=== PATIENT | female | born 1970 | race Caucasian/White ===

== ENCOUNTER 2024-04-29 11:00 | Outpatient (RCR) | payer MEDICARE, SELFPAY | END 2024-05-06 09:50 | disposition home or self-care (01) | LOC: PT 11:00 | PROVIDERS: Visit Provider Neurological Surgery | DX: M50.30 Other cervical disc degeneration, unspecified cervical region (principal) | CPT/HCPCS: 97010; 97014; 97035; 97110; 97163; 97530; G0283 ==

== ENCOUNTER 2024-09-01 09:33 | Outpatient (CLI) | payer MEDICARE, SELFPAY ==
--- NOTE | 2024-09-01 09:39 | XR_ITS ---
PROCEDURE INFORMATION: Exam: XR Left Knee Exam date and time: 09/01/2024 9:42 AM Age: 53 years old Clinical indication: Pain; Knee; Left; Additional info: Bilateral knee pain TECHNIQUE: Imaging protocol: Radiologic exam of the left knee. Views: 3 views. AP [place] Lateral COMPARISON: CR XR KNEE LT 3V 09/01/2024 9:42 AM FINDINGS: Bones/joints: Mild generalized bony degenerative changes. Mild irregularity of the patellar articular surface. Slight narrowing of the medial compartment. No joint effusion is demonstrated. Bony structures appear otherwise unremarkable. No visualized evidence for acute bony fracture or dislocation. Soft tissues: The soft tissue appear unremarkable. Notes: If there is further concern, recommend follow-up radiographs or MRI for complete assessment. IMPRESSION: Mild degenerative changes.
--- NOTE | 2024-09-01 09:39 | XR_ITS ---
PROCEDURE INFORMATION: Exam: XR Right Knee Exam date and time: 09/01/2024 9:42 AM Age: 53 years old Clinical indication: Pain; Knee; Right; Additional info: Bilateral knee pain TECHNIQUE: Imaging protocol: Radiologic exam of the right knee. Views: 3 views. AP [place] Lateral COMPARISON: No relevant prior studies available. FINDINGS: Bones/joints: Narrowing of the knee medial compartment is demonstrated. Mild to moderate generalized bony degenerative changes. Minimal joint effusion is demonstrated. No visualized evidence for acute bony fracture or dislocation. Bony structures appear otherwise unremarkable. Soft tissues: The soft tissue appear unremarkable. Notes: If there is further concern, recommend follow-up radiographs or MRI for complete assessment. IMPRESSION: 1. Chronic bony degenerative changes. 2. Minimal right knee joint effusion.
== END 2024-09-01 23:59 | disposition home or self-care (01) ==
LOC: RAD 09:35
PROVIDERS: PCP Nurse Practitioner Family; Visit Provider Physician Assistant
DX: M25.561 Pain in right knee (principal); M25.562 Pain in left knee
CPT/HCPCS: 73562

== ENCOUNTER 2024-09-26 09:02 | Outpatient (CLI) | payer MEDICARE, SELFPAY ==
--- NOTE | 2024-09-26 09:11 | CA_ITS ---
APPROVED REPORT EXAM: Comprehensive 2D, Doppler, and color-flow Echocardiogram Application Development Project Manager: Neeru Garrett RVT Ht: 5 ft 4 in Wt: 289lbs BSA: 2.29 BP: 153/106 mmHg Indications: HTN,FATIGUE,FAMILY HX OF AAA AND CAD 2D Dimensions LA Volume 36.80 mL LA Volume Index 16.07 mL/m2 (M/F) 16-34 M-Mode Dimensions RVDd 3.87 cm (0.9-2.6) LA Diam 4.13 cm (1.9-4.0) LVDd 5.11 cm (3.5-5.7) LVDs 3.19 cm (3.5-5.7) IVSd 1.02 cm (0.6-1.1) PWd 0.77 cm (0.6-1.1) EF (Teich) 67.40% FS 37.60% EDV (Teich) 124.40 mL ESV (Teich) 40.60 mL LV Diastology E Decel Time 237 (160-240 msec) E/A Ratio 1.4 Aortic Valve MAHAD Index 1.67 cm2/m2 AoV Peak Genaro. 154.0 (50-130 cm/s) AO Peak GR. 9.50 mmHg AO Mean GR. 4.70 (<5 mmHg) AO VTI 26.9 (18-25 cm) MAHAD (VTI) 3.91 (2.5-4.5 cm2) Mitral Valve MV E Max Genaro. 93.0 (40-130 cm/s) MV A Velocity 66.0 (40-130 cm/s) E/A Ratio 1.41 MV PHT 69.0 ms Pulmonary Valve PV Peak Velocity 100.0 (50-150 cm/s) Tricuspid Valve TR P. Velocity 204.00 cm/s RAP Estimate 10.00 mmHg RVSP 26.70 mmHg Left Ventricle The left ventricle is normal size. The left ventricular systolic function is low-normal. There is increased LV wall thickness. The septum is asynchronous. The left ventricular diastolic function is normal. LVEF is 50%. Right Ventricle The right ventricle is normal size. The right ventricular systolic function is normal. Atria The left atrium size is normal. The right atrium size is normal. There is no Doppler evidence of interatrial shunt. Aortic Valve The aortic valve is mildly thickened. There is no aortic valvular stenosis. No aortic regurgitation is present. Mitral Valve The mitral valve is normal in structure. No evidence of mitral valve stenosis. Trace mitral regurgitation. Tricuspid Valve Tricuspid valve is grossly normal in structure and function. Trace tricuspid regurgitation. There is insufficient TR jet to estimate RVSP. Pulmonic Valve The pulmonary valve is normal in structure. Trace pulmonic regurgitation. Great Vessels The aortic root is normal in size. The proximal segment of the ascending aorta is normal in size. IVC is normal in size and collapses >50% with inspiration. Pericardium There is no pericardial effusion. Other Information Study Quality: Fair Conclusion Low-normal LV systolic function (LVEF 50%). Asynchronous septum. No significant valvular stenosis or regurgitation. No evidence of aneurysms in the aortic root or the proximal segment of the ascending aorta. Electronically signed by : Yenni Banda MD 10/12/2024 17:17:08
--- NOTE | 2024-09-26 09:14 | CT_ITS ---
FINAL REPORT TECHNIQUE: Pre-and postcontrast images of the abdomen were performed by computed tomography. Extensive 3-D reconstruction images were performed. A CTA was performed. This study was performed with techniques to keep radiation doses as low as reasonably achievable (ALARA). Individualized dose reduction techniques using automated exposure control or adjustment of mA and/or kV according to the patient's size were employed. CLINICAL HISTORY: family history of aneursym COMPARISON: None FINDINGS: ABDOMEN: The lung bases are clear. Precontrast images demonstrate a nonobstructing right renal stone. No adrenal masses are identified. The liver, spleen and pancreas are unremarkable. The gallbladder is unremarkable in appearance. The appendix is normal in appearance. The uterus and ovaries are unremarkable. Visualized bowel is unremarkable. CTA: The abdominal aorta is proper caliber. No evidence of aneurysm is identified in either the abdominal aorta or the visceral branches. The SMA, celiac axis, and [place] are patent. There is no significant stenosis or calcification. The renal arteries are patent bilaterally. IMPRESSION: No intra-abdominal vascular abnormality is identified. Specifically, no evidence of abdominal aortic or visceral branch aneurysm is seen. Nonobstructing right renal stone Reviewed, Interpreted and Dictated by Danica Balderas MD Transcribed by Fiona Kearns Authenticated and . [facility]
[2024-09-26 09:36] LABS: Blood Urea Nitrogen 15 mg/dl (7-17); Estimated Glomerular Filt Rate 105 ml/min (>60); GFR (African American) 127 ML/MIN (>60)
[2024-09-26] MEDS: SODIUM CHLORIDE 0.9% 10ML SYR (RAD ONLY) 10 ML IV (10:00)
[2024-09-26] MEDS: 0.9 % SODIUM CHLORIDE 50 ML VIAL IV (10:00)
[2024-09-26] MEDS: IOPAMIDOL-370 (76%);100ML BOTTLE 100 ML IV (10:01)
== END 2024-09-26 23:59 | disposition home or self-care (01) ==
LOC: LAB 09:04
PROVIDERS: PCP Nurse Practitioner Family; Visit Provider Internal Medicine
DX: R53.83 Other fatigue (principal); I10 Essential (primary) hypertension; Z79.899 Other long term (current) drug therapy; Z86.79 Personal history of other diseases of the circulatory system; Z87.39 Personal history of other diseases of the musculoskeletal system and connective tissue; Z82.49 Family history of ischemic heart disease and other diseases of the circulatory system
CPT/HCPCS: 36415; 74175; 82565; 84520; 93306; Q9967

== ENCOUNTER 2024-12-02 11:00 | Outpatient (RCR) | payer MEDICARE, SELFPAY | END 2024-12-02 23:59 | disposition home or self-care (01) | LOC: PT 11:00 | PROVIDERS: Visit Provider Nurse Practitioner Family | DX: M54.50 Low back pain, unspecified (principal) | CPT/HCPCS: 97014; 97110; 97163; G0283 ==

== ENCOUNTER 2024-12-17 11:00 | Outpatient (RCR) | payer MEDICARE, SELFPAY | END 2025-01-05 15:58 | disposition home or self-care (01) | LOC: PT 11:00 | PROVIDERS: Visit Provider Nurse Practitioner Family | DX: M54.50 Low back pain, unspecified (principal) | CPT/HCPCS: 97014; 97110; G0283 ==

== ENCOUNTER 2025-03-04 12:10 | Outpatient (CLI) | payer MEDICARE, SELFPAY ==
[2025-03-04 12:18] LABS: MANUAL DIFFERENTIAL MANUAL DIFFERENTIAL (MANUAL DIFF)
[2025-03-04 12:48] LABS: Basophils # 0.1 K/mm3 (0-0.2); Basophils % 0.5 % (0.1-2.0); Eosinophils # 0.3 Kmm3 (0.0-0.4); Eosinophils % 2.8 % (0.1-12.0); Hematocrit 40.2 % (37.0-47.0); Hemoglobin 12.6 g/dL (12.2-16.2); Lymphocytes # 2.6 K/mm3 (0.7-4.5); Lymphocytes % 26.6 % (10-50); Mean Corpuscular HGB Conc 31.3 g/dL (31.8-35.4); Mean Corpuscular Hemoglobin 25.4 pg (27.0-31.2); Mean Platelet Volume 9.7 fl (7.4-10.4); Monocytes # 0.6 K/mm3 (0.1-1.0); Monocytes % 6.3 % (1.7-9.3); Neutrophils # 6.1 K/mm3 (1.8-7.8); Neutrophils % 63.5 % (37.0-80.0); Platelet Count 355 K/mm3 (142-424); Red Blood Count 4.96 M/mm3 (4.20-5.40); Red Cell Distribution Width 15.8 % (11.5-17.5); White Blood Count 9.7 K/mm3 (4.8-10.8)
[2025-03-04 13:26] LABS: Eosinophils % 3 % (0-3); Lymphocytes % 26 % (10-50); Monocytes % 3 % (2-9); Neutrophils % 68 % (42-76); Total Cells Counted 100
[2025-03-04 13:27] LABS: Alanine Aminotransferase 23 U/L (12-78); Alkaline Phosphatase 92 U/L (38-126); Aspartate Amino Transferase 32 U/L (14-36); Bilirubin,Total 0.5 mg/dl (0.2-1.3); Calcium 9.6 mg/dl (8.4-10.2); Chloride 100 mmol/L (98-107); Glucose 103 mg/dl (74-100); Potassium 4.5 mmoL/L (3.5-5.1); RBC Morphology Normal; Sodium 138 mmol/L (136-145)
[2025-03-04 13:28] LABS: Platelet Estimate Normal
[2025-03-04 13:29] LABS: Albumin Level 4.5 g/dl (3.5-5.0); Albumin/Globulin Ratio 1.5 (1.1-1.8); Anion Gap 12.5 mEq/L (5-15); Blood Urea Nitrogen 13 mg/dl (7-17); Carbon Dioxide 30 mmol/L (22.0-30.0); Estimated Glomerular Filt Rate 105 ml/min (>60); GFR (African American) 127 ML/MIN (>60); Total Protein,Serum 7.5 g/dl (6.3-8.2)
[2025-03-04 14:16] LABS: Vitamin B12 871 pg/mL (239-931)
[2025-03-04 14:30] LABS: Folate > 20.00 ng/mL
== END 2025-03-04 23:59 | disposition home or self-care (01) ==
LOC: LAB 12:10
PROVIDERS: PCP Nurse Practitioner Family; Visit Provider Specialist
DX: R20.0 Anesthesia of skin (principal); R20.2 Paresthesia of skin; R53.83 Other fatigue
CPT/HCPCS: 36415; 80053; 82607; 82746; 85007; 85014; 85018; 85048; 85049

== ENCOUNTER → 2025-04-13 07:15 | Outpatient (CLI) | payer MEDICARE, SELFPAY ==
--- OUTSIDE RECORDS SUMMARY | 2025-04-13 07:18 | XMS_ITS | Clinical Summary ---
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 M47.814 (ICD-10-CM ) 02/26 Active 02/26 Lilian Joanna Spondylosis without myelopathy or radiculopathy, thoracic region THORACOLUMB AR RADICULOPAT HY RADICULOPAT HY 801860768 (SNOMED CT) 12/26 Active 12/26 Madeleine Olmos MA Lumbar radiculopathy LUMBAR RADICULOPAT HY 403890563 (SNOMED CT) 12/24 Active 12/24 Shannon Sullivan MA Lumbar radiculopathy ARTHRODESIS STATUS 921476575 (SNOMED CT) 03/19 Active 03/19 Joyce Jefferson 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 H/O: arthrodesis CERVICAL MYELOPATHY 348422829 (SNOMED CT) 05/18 Active 05/18 Charley Lerma Cervical myelopathy PRE-OP EXAM 634456975 (SNOMED CT) 05/18 Active 05/18 Siria Miles Special examination - general STENOSIS, CERVICAL SPINAL 66646644 (SNOMED CT) 05/18 Active 05/18 Siria Abbatiello Spinal stenosis in cervical region SPINAL CORD COMPRESSION 54898252 (SNOMED CT) 05/18 Inactive 05/18 Siria Abbatiello Spinal cord compression PAIN IN JOINT, SHOULDER 14592577 (SNOMED CT) 04/20 Active 04/20 Sil Foley MA Pain of shoulder region DEGENERATIV E DISC DISEASE, CERVICAL SPINE 70102082 (SNOMED CT) 04/06 Active 04/06 Siria Abbatiello Degeneration of cervical intervertebral disc CERVICAL RADICULOPAT HY 16793681 (SNOMED CT) 2022 Active 04/06 Yesenia Rebolledo 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 Cervical radiculopathy PAIN IN NECK M54.2 (ICD-10-CM ) 04/06 Active 04/06 Siria Abbatiello Cervicalgia HYPERTENSIO N 90791711 (SNOMED CT) 04/03 Active 04/03 Siria Abbatiello Hypertensive disorder DEGENERATIV E DISC DISEASE, LUMBAR SPINE 89408182 (SNOMED CT) 12/30 Active 12/30 Yvonne Jj MA Degeneration of lumbar intervertebral disc SACROILIAC JOINT DYSFUNCTION 986649727 (SNOMED CT) Active Yvonne Parviz MA Sacroiliac disorder SACROILIITI S 81452892 (SNOMED CT) Active Yesenia Rebolledo 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 Inflammation of sacroiliac joint OVERWEIGHT 195228893 (SNOMED CT) 12/08 Active 12/08 Callie Gomez MA Overweight ARTHRODESIS STATUS 878724764 (SNOMED CT) 06/25 Active 06/25 Dia Briceno H/O: arthrodesis HERNIATED LUMBAR DISC 066220349 (SNOMED CT) 04/23 Active 05/31 Sil Foley MA Prolapsed lumbar intervertebral disc LUMBAR SPONDYLOLIS THESIS 045066008 (SNOMED CT) 04/23 Active 05/31 Sil Foley MA Spondylolisthes is LUMBAR STENOSIS, L1-L5, WITH NEUROGENIC CLAUDICATIO N M48.062 (ICD-10-CM ) 2019 Active 04/23 Yesenia Rebolledo 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 Spinal stenosis, lumbar region with neurogenic claudication LUMBAR DEGENERATIV E DISC, L1-L5 M51.36 (ICD-10-CM ) 2019 Active 04/23 Yesenia Rebolledo 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 Other intervertebral disc degeneration, lumbar region ARTHROPATHY OF LUMBAR FACET JOINT 728130306 (SNOMED CT) 04/23 Active 04/23 Yesenia Rebolledo 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 Arthropathy of lumbar facet joint SACROILIITI S, LEFT 50626732 (SNOMED CT) march 2019 Active 10/17 Yesenia Rebolledo 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 Inflammation of sacroiliac joint LUMBAR SPINAL STENOSIS 95095222 (SNOMED CT) Active 10/11 Yesenia Rebolledo 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 Spinal stenosis of lumbar region Medications Medication Instructions Start Date Stop Date Generic Name ND Provider TIZANIDINE HCL 4 MG TABS Take 1/2-1 tablet by mouth three times a day for pain for muscle spasm discontinue other muscle relaxers 12/24 tizanidine 54761305069 Gena MALONE PREDNISONE 10 MG TABS Take as directed :STOP All NSAIDS: In the mornin tabs QD for 2 days, 3 tabs QD for 2 days, 2 tabs QD x 2 days, 1 tab QD x 2 days, 1/2 tab QD x 2 days 12/24 prednisone 66925429224 Gena MALONE TRAMADOL HCL 50 MG TABS 1 tablet by mouth every six hours for pain 12/24 tramadol 38472879971 Gena MALONE MAGNESIUM CITRATE 1.745 GM/30ML SOLN Take 296 ml by mouth single dose 12/24 magnesium citrate 27723599204 Gena MALONE HYDROCHLOROTHIAZIDE 25 MG TABS Take 25 mg by mouth once a day 12/24 hydrochlorothiazid e 08308869526 Gena MALONE ZOLOFT 50 MG TABS Non-Antunez 10/11 sertraline 96594113347 Gena MALONE PREDNISONE 10 MG TABS Take as directed :STOP All NSAIDS: In the mornin tabs QD for 2 days, 3 tabs QD for 2 days, 2 tabs QD x 2 days, 1 tab QD x 2 days, 1/2 tab QD x 2 days 11/18 prednisone 82966823360 Gena MALONE SERA ROOT, BULK, by Does not apply route. 12/24 SERA ROOT, BULK, Gena MALONE AVIANE 0.1-20 MG-MCG TABS -Antunez 10/11 levonorgestrel-eth inyl estrad 70794549237 Gena MALONE Accuretic (quinapril-hydrochlo rothiazide) 20-25 mg tablet -Antunez 10/11 quinapril-hydrochl orothiazide 62385141768 Gena MALONE ACTIVITE (B [id number] ACID) 1 MG TABS -Antunez 10/11 B [id number] ACID Gena MALONE OMEPRAZOLE 20 MG CPDR Take 20 mg by mouth once a day 12/24 omeprazole 98594238269 Gena MALONE K-99 CAPSULE -Antunez 10/11 K-99 CAPSULE Gena MALONE VITAMIN D3 1.25 MG (33932 UT) CAPS Take 1 by mouth once a week 05/21 cholecalciferol (vitamin d3) 11286006167 Gena MALONE LEVONORGESTREL-ETHIN YL ESTRAD 0.1-20 MG-MCG TABS Take 1 tablet by mouth once a day 12/24 levonorgestrel-eth inyl estrad 38985099513 Gena MALONE POTASSIUM CHLORIDE PO Take by mouth 12/24 POTASSIUM CHLORIDE PO Gena MALONE GABAPENTIN 300 MG CAPS -Antunez 10/11 gabapentin 25779678159 Gena MALONE FUROSEMIDE 20 MG TABS 12/24 furosemide 14408285455 Gena MALONE HYDROCHLOROTHIAZIDE 25 MG TABS hydrochlorothiaz id e 15551297962 Gena MALONE CARVEDILOL 3.125 MG TABS carvedilol 89195223535 Gena MALONE DICLOFENAC SODIUM 75 MG TBEC diclofenac sodium 31056713245 Zuri MALONE METFORMIN HCL ER 500 MG [id number] metformin (glucophage xr) 01620405552 Gena MALONE SERTRALINE HCL 50 MG TABS sertraline 71479271035 Gena MALONE FLUTICASONE PROPIONATE 50 MCG/ACT SUSP fluticasone propionate 99693176618 Gena MALONE SERTRALINE HCL 25 MG TABS sertraline 35275794067 Gena MALONE OMEPRAZOLE 20 MG CPDR omeprazole 69815806587 Gena MALONE CETIRIZINE HCL 10 MG TABS TAKE ONE (1) TABLET EVERY DAY BY ORAL ROUTE. cetirizine 24524442609 Gena MALONE GABAPENTIN 400 MG CAPS gabapentin 03813969511 Gena MALONE GABAPENTIN 600 MG TABS gabapentin 82730010366 Gena MALONE PREDNISONE 10 MG TABS Take as directed :STOP All NSAIDS: In the mornin tabs QD for 2 days, 3 tabs QD for 2 days, 2 tabs QD x 2 days, 1 tab QD x 2 days, 1/2 tab QD x 2 days 11/18 prednisone 74525717386 Gena MALONE CELECOXIB 200 MG CAPS Take 1 capsule by mouth once a day as directed 03/13 celecoxib 69945163125 Joyce Jefferson NP METHOCARBAMOL 750 MG TABS Take 1 tablet by mouth every six hours as needed TAKE 1 TABLET BY MOUTH EVERY 6 HOURS NEEDED FOR MUSCLE SPASMS 12/30 methocarbamol 83695623435 Joyce Jefferson NP PERCOCET 5-325 MG TABS Take 1 tablet by mouth every six hours as needed for pain 03/19 oxycodone-acetamin ophen 36035839621 Joyce Jefferson 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 PERCOCET 5-325 MG TABS Take 1 tablet by mouth every six hours as needed for pain 03/19 oxycodone-acetamin ophen 68016756799 Mauricio Mattson MD DICLOFENAC SODIUM 75 MG TBEC Take 1 tablet by mouth twice a day Take medication with food 12/30 diclofenac sodium 64190492801 Yesenia Rebolledo 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 MAGNEBIND 400 TABLET -Antunez 10/11 MAGNEBIND 400 TABLET Siria Miles KP OMEPRAZOLE MAGNESIUM 20.6 (20 Base) MG CPDR -Antunez 10/11 omeprazole magnesium 60262554187 Siria Miles GABAPENTIN 300 MG CAPS -Antunez 10/11 gabapentin 16020590398 Siria Miles ROBAXIN-750 750 MG ORAL TABLET 1 tablet by mouth four times a day as needed 12/08 ROBAXIN-750 750 MG ORAL TABLET Siria Miles FUROSEMIDE 20 MG TABS 12/24 furosemide 54405248009 Siria Miles CELEBREX 200 MG CAPS -Antunez 10/11 celecoxib 01529834277 Sil Foley MA CELECOXIB 200 MG CAPS Take 1 capsule by mouth once a day 02/05 celecoxib 52072401269 Sil Foley MA CELEBREX 200 MG CAPS Take 1 capsule once a day 12/08 celecoxib 95896756307 Sil Foley MA CELECOXIB 200 MG CAPS Take 1 capsule by mouth once a day as directed 03/13 celecoxib 86603455365 Yesenia Rebolledo 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 MAGNESIUM CITRATE 1.745 GM/30ML SOLN Take 296 ml by mouth single dose 12/24 magnesium citrate 68596485723 Luisa Dubose GABAPENTIN 300 MG CAPS -Antunez 10/11 gabapentin 72113997858 Siria Miles K-99 CAPSULE -Antunez 10/11 K-99 CAPSULE Siria Miles ZOLOFT 50 MG TABS -Antunez 10/11 sertraline 27776801993 Siria Miles POTASSIUM CHLORIDE PO Take by mouth 12/24 POTASSIUM CHLORIDE PO Luisa Dubose ACTIVITE 1 MG TABS Non-Antunez 10/11 B EVJETKC-I-HYTXT ACID Siria Miles CELEBREX 200 MG CAPS Take 1 capsule once a day 12/08 celecoxib 26606927395 Yesenia Rebolledo NP LEVONORGESTREL-ETHIN YL ESTRAD 0.1-20 MG-MCG TABS Take 1 tablet by mouth once a day 12/24 levonorgestrel-eth inyl estrad 18140599627 Luisa Dubose Accuretic 20-25 mg tablet -Antunez 10/11 quinapril-hydrochl orothiazide 65431757421 Siria Miles GABAPENTIN 300 MG CAPS -Antunez 10/11 gabapentin 20039929128 [facility] 20 MG CPDR Take 20 mg by mouth once a day 12/24 omeprazole 63744291794 Luisa Dubose HYDROCHLOROTHIAZIDE 25 MG TABS Take 25 mg by mouth once a day 12/24 hydrochlorothiazid e 98456769885 Luisa Dubose CELEBREX 200 MG CAPS -Antunez 10/11 celecoxib 31723552685 [facility] 200 MG CAPS Take 1 capsule by mouth once a day 02/05 celecoxib 91225948578 Yesenia Rebolledo NP ROBAXIN-750 750 MG ORAL TABLET 1 tablet by mouth four times a day as needed 12/08 ROBAXIN-750 750 MG ORAL TABLET Yesenia Rebolledo NP VITAMIN D3 1.25 MG (71027 UT) CAPS Take 1 by mouth once a week 05/21 cholecalciferol (vitamin d3) 04966664843 Sil Foley MA AVIANE 0.1-20 MG-MCG TABS -Antunez 10/11 levonorgestrel-eth inyl estrad 71424789387 Siria Claudiatavo OMEPRAZOLE MAGNESIUM 20.6 (20 Base) MG CPDR Non-[place] 10/11 omeprazole magnesium 13982183561 Siria Miles DICLOFENAC SODIUM 75 MG TBEC Take 1 tablet by mouth twice a day Take medication with food 12/30 diclofenac sodium 37438107661 Yesenia Rebolledo NP DICLOFENAC SODIUM 75 MG TBEC Take 1 tablet by mouth twice a day Take medication with food 12/30 diclofenac sodium 98610261743 Yesenia Rebolledo NP METHOCARBAMOL 750 MG TABS Take 1 tablet by mouth every six hours as needed TAKE 1 TABLET BY MOUTH EVERY 6 HOURS NEEDED FOR MUSCLE SPASMS 12/30 methocarbamol 31467802814 Yesenia Rebolledo NP CELECOXIB 200 MG CAPS Take 1 capsule by mouth once daily 02/05 CELECOXIB 61784555921 Yesenia Rebolledo NP CELEBREX 200 MG CAPS Take 1 capsule daily 12/08 CELECOXIB 12508055875 Yesenia Rebolledo NP ROBAXIN-750 750 MG ORAL TABLET 1 tab po qid prn 12/08 METHOCARBAMOL 62482546183 Yesenia Rebolledo NP VITAMIN D3 1.25 MG (10427 UT) CAPS Take 1 po weekly 05/21 CHOLECALCIFEROL 07396219401 Mauricio Mattson MD POTASSIUM CHLORIDE PO Take by mouth. 04/03 POTASSIUM CHLORIDE PO Luisa Dubose OMEPRAZOLE 20 MG CPDR Take 20 mg by mouth daily. 04/03 omeprazole (PRILOSEC) 20 mg capsule 74093211951 Luisa Dubose MAGNESIUM CITRATE 1.745 GM/30ML SOLN Take 296 mL by mouth once. 04/03 magnesium citrate Solution 20808475278 Luisa Dubose LEVONORGESTREL-ETHIN YL ESTRAD 0.1-20 MG-MCG TABS Take 1 Tab by mouth daily. 04/03 levonorgestrel-eth inyl estradiol (AVIANE) 0.1-20 mg-mcg Tabl 37783732791 Luisa R Sedrick HYDROCHLOROTHIAZIDE 25 MG TABS Take 25 mg by mouth daily. 04/03 hydroCHLOROthiazid e (HYDRODIURIL) 25 mg tablet 51649128328 Luisa Dubose SERA ROOT, BULK, by Does not apply route. 12/24 SERA ROOT, BULK, Luisa Dubose K-99 CAPS Antunez 10/11 POTASSIUM GLUCONATE CAPS 94157422368 Randi Bains AVIANE 0.1-20 MG-MCG TABS Antunez 10/11 LEVONORGESTREL-ETH INYL ESTRAD 01746211435 Randi Bains MAGNEBIND 400 TABLET Antunez 10/11 MAGNESIUM-CALCIUM- FOLIC ACID TABS 63632917001 Randi Bains ACCURETIC 20-25 MG ORAL TABLET Antunez 10/11 QUINAPRIL-HYDROCHL OROTHIAZIDE 52566679950 Randi Bains ZOLOFT 50 MG TABS Antunez 10/11 SERTRALINE HCL 19033978467 Randi Bains EQ OMEPRAZOLE MAGNESIUM 20 MG CPDR Antunez 10/11 OMEPRAZOLE MAGNESIUM 90951586826 Randi Bains ACTIVITE 1 MG TABS Antunez 10/11 B [id number]-Z-TBCYU ACID 93261752142 Randi Bains GABAPENTIN 300 MG CAPS Antunez 10/11 GABAPENTIN 46747392997 Randi Bains CELEBREX 200 MG CAPS Antunez 10/11 CELECOXIB 07222436070 Randi Bains GABAPENTIN 300 MG CAPS -Antunez 10/11 GABAPENTIN 87996833182 Randi Bains CELEBREX 200 MG CAPS -Antunez 10/11 CELECOXIB 27644804590 Randi Bains Medications Administered No information available. Allergies, Adverse Reactions, Alerts Allergy Name Reaction Description Start Date Severity Statu s Provider METOPROLOL Critical Merly Oleary RN SULFA Critical Merly Oleary RN LISINOPRIL Critical Yesenia deutsch 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 Results Date Name Value Unit Range Flag Description Lab Report: DIFFERENTIAL ABS BASOS 0.1 10*3/UL {Cells}/ uL 0.0-0.2 N Basophils [#/volume] in Blood ABS EOS 0.3 10*3/UL {Cells}/ uL 0.0-0.5 N Eosinophils [#/volume] in Blood ABS MONOS 0.5 10*3/UL {Cells}/ uL 0.2-0.9 N Monocytes [#/volume] in Blood ABSLYMPHCT 2.3 {Cells}/ uL 0.8-3.9 N Lymphocytes [#/volume] in Blood ABS PMNS 7.0 10*3/UL {Cells}/ uL 1.5-7.8 N Neutrophils [#/volume] in Blood BASOPHILS 0.5 BASOPHILS EOSINOPHILS 2.6 EOSINOPHI LS MONOCYTES 5.0 MONOCYTES LYMPHS % 22.7 % Lymphocytes/ 100 leukocytes in Blood by Automated count NEUTROP BF 68.9 % Neutrophil s/100 leukocytes in Body fluid Lab Report: Staph Aureus Scr een PCR, Nares MRSA MCA PCR NEGATIVE NEGATIVE N Staphy lococcus aureus methicillin resistance SCCmec [Presence] in Nose by MELVINA with probe detection Lab Report: URINALYSIS W/ RE FLEX TO MICROSCOPIC EPITH CELL U 3 /[HPF] 0-5 epitheli al cells, squamous, urine WBC UR 1 /[HPF] 0-5 leukocytes, n umber seen, urine specimen, by microscopy Lab Report: CBC (COMPLETE BL OOD COUNT) MPV 10.1 fL 9.0-13.0 Platelet gracie n volume [Entitic volume] in Blood by [place] PLATELET CNT 315 10*3/uL 140-400 platelet count RDW 15.8 % 11.0-15.0 H Erythrocyte distribution width [Ratio] by Automated count MCHC RBC 30.3 g/dL 30.0-36.0 mean corpu scular hemoglobin concentration, RBC MCH 25.0 pg 27.0-33.0 L MCH [Entiti c mass] by Automated count MCV 82.4 fL 80.0-100.0 MCV [Entit ic volume] by Automated count HCT 42.6 % 35.0-46.0 Hematocrit [Volume Fraction] of Blood by Automated count HGB 12.9 g/dL 11.7-15.5 Hemoglobin [Mass/volume] in Blood RBC 5.17 10*6/mm3 3.80-5.10 H Erythrocyt es [#/volume] in Blood by Automated count WBC 8.30 10*3/mm3 4.00-12.00 Leukocyte s [#/volume] in Blood by Automated count Lab Report: TYPE AND SCREEN RH TYPE Negative Rh antigen ABO BLD GRP A ABO blood group Lab Report: APTT PTT PATIENT 29.8 s 23.1-37.6 PTT pat ient Lab Report: PT (PRO TIME INC LUDES INR) INR 0.9 NA 0.9-1.1 INR in Platel et poor plasma by Coagulation assay PT PATIENT 11.4 s 10.5-14.1 Prothrom bin time (PT) Lab Report: ANTIBODY SCREEN ANTIBODY SCR Negative Negative antibo dy screen, serum Lab Report: HGB, A1C (GLYCOH EMOGLOBIN) HGBA1C 6.0 % 4.0-5.6 H Hemoglobin A1c/Hemoglobin, total in Blood - % Lab Report: URINALYSIS W/ RE FLEX TO MICROSCOPIC WBC ESTERASE Negative Negative leukoc yte (WBC) esterase, urine NITRITE UA Negative Negative Nitrite Urine UROBILINOGEN <2.0 <2.0 Urobilin ogen [Presence] in Urine by Test strip PROTEIN, URN Negative Negative protei n, urine, semiquantitative (dipstick) PH U QN 6.5 NA 5.0-8.0 ph, urine, quantitative BLOOD UR Negative Negative BLOOD, URI NE (hematuria) SPEC GR URIN 1.016 NA 1.005-1.035 Spe cific gravity of Urine by Test strip KETONES UR Negative Negative KETONES, URINE BILIRUBIN UR Negative Negative Biliru bin.total [Presence] in Urine by Test strip GLUCOSE, URN Negative Negative Glucos e [Mass/volume] in Urine by Test strip CLARITY UR Clear Clear clarity, u rine, point UA COLOR Yellow Yellow,Straw ,Colorless Color of Urine Plan of Care Type Date Detail Appointment 03:00 PM Mauricio basilio MD, [address] [place] [address], [phone], Appointment 02:45 PM Super User, Appointment 02:30 PM Jamee Mejia PA-C, Appointment 02:15 PM Super User, Referral Orthopedic Refer ral Pending order 25 OH Vitamin D- 25 HYDROXY INCLUDES FRACTIONS IF PERFORMED Pending order EKG Pending order MRI Thoracic wit hout Contrast Pending order MRI Thoracic wit hout Contrast Pending order CBC Diff Pending order PTT Pending order INR Pending order PT Pending order TLSO Brace Pending order Metabolic Panel, Basic Pending order X-Ray Cervical A P Lateral/Flexion & Extension Pending order X-Ray Lumbar AP Lateral & Flexion/Extension Pending order X-Ray Lumbar AP Lateral Pending Order exclud ed from report: Pending order X-Ray Lumbar AP Lateral Pending order MRI Lumbar witho ut Contrast Pending order MRI Lumbar witho ut Contrast Pending order X-Ray Cervical A P Lateral/Flexion & Extension Pending order X-Ray Cervical A P Lateral/Flexion & Extension Pending order X-Ray Cervical A P Lateral/Flexion & Extension Pending order X-ray Cervical A P and Lateral Pending order X-Ray Cervical F lexion/Extension Pending order X-Ray Cervical A P Lateral Pending order X-Ray Cervical A P Lateral Pending order 25 OH Vitamin D- 25 HYDROXY INCLUDES FRACTIONS IF PERFORMED Pending order EKG Pending order CBC Diff Pending order PTT Pending order INR Pending order PT Pending order Metabolic Panel, Basic Pending order X-Ray Cervical A P Lateral Pending order X-Ray Cervical A P Lateral Pending order X-Ray Cervical A P Lateral Pending Order exclud ed from report: Pending order 25 OH Vitamin D- 25 HYDROXY INCLUDES FRACTIONS IF PERFORMED Pending order EKG Pending order CBC Diff Pending order PTT Pending order INR Pending order PT Pending order [place] J Collar Pending order Metabolic Panel, Basic Pending order X-Ray Lumbar AP Lateral & Flexion/Extension Pending order MRI Cervical wit hout Contrast Pending order MRI Cervical wit hout Contrast Pending order X-Ray Cervical F lexion and Extension Pending order X-Ray Lumbar AP Lateral & Flexion/Extension Pending order X-Ray Lumbar AP Lateral & Flexion/Extension Pending order X-Ray Lumbar AP Lateral & Flexion/Extension Pending order X-Ray Lumbar AP Lateral Pending order 25 OH Vitamin D- 25 HYDROXY INCLUDES FRACTIONS IF PERFORMED Pending order LISA x 1 therapeu tic injection & follow up with ordering MD Pending order X-Ray Lumbar AP Lateral & Flexion/Extension Pending order MRI Lumbar witho ut Contrast Pending order MRI Lumbar witho ut Contrast Pending order Si Joint Injecti on, therapeutic injection & follow up with ordering MD Pending order SI Joint Injecti on, therapeutic injection ( Protocol # 4 ) Pending order X-Ray Lumbar AP Lateral Pending order Radiologic exami nation, spine, lumbosacral; minimum of 4 views Pending order X-Ray Lumbar AP Lateral & Flexion/Extension Pending order X-Ray Scoliosis Standing Pending order X-Ray Lumbar AP Lateral Pending order 25 OH Vitamin D- 25 HYDROXY INCLUDES FRACTIONS IF PERFORMED Pending order Type & Screen (t o be done by hospital) Pending order EKG Pending order Radiologic exami nation, spine, lumbosacral; minimum of 4 views Pending order CBC Diff Pending order PTT Pending order INR Pending order PT Pending order Metabolic Panel, Basic Pending order MRI Lumbar witho ut Contrast Pending order MRI Lumbar witho ut Contrast Pending order LISA x 1 injectio n & follow up with ordering MD Pending order SI Joint Injecti on, therapeutic injection ( Protocol # 4 ) Pending order LISA -- x 1 injec tion then follow back to Ordering MD Pending order LISA -- x 1 injec tion then follow back to Ordering MD Procedures Code Procedure Name Date Entry Date [id number] Phone call telemedic ine visit for an established patient 10-19 minutes [id number] X-Ray Lumbar AP Lateral 2024 [id number] X-Ray Cervical AP Lateral 30/05/11 [id number] Flu Shot Previously Received [id number] Medications Documented [id number] Flu Shot Previously Received [id number] Medications Documented [id number] Flu Shot Previously Received [id number] Medications Documented [id number] Flu Shot Previously Received [id number] Medications Documented Vital Signs Date Name Value Unit Description Height 65 [in_us] height E&M BMI (Body Mass Index) 48.25 kg/m2 Bod y Mass Index (Ratio) Weight Measured 290 [lb_av] weight E& M Weight Measured 290 [lb_av] weight E& M BP Diastolic 80 mm[Hg] blood pressu re, diastolic BP Systolic 158 mm[Hg] blood pressur e, systolic Body Temperature 98.5 [degF] temperat ure E&M Heart Rate 91 /min pulse rate Respiratory Rate 16 /min respirat ory rate E&M Immunizations No information available. Advance Directives No information available.
--- OUTSIDE RECORDS SUMMARY | 2025-04-13 07:18 | XMS_ITS | Continuity of Care Document ---
Author Organization [facility] Address [address] [place] [address] Care Team Providers Care Census Enumerator Name Role Phone JHONY AMIN Family Medicine Unavailable HUSSEIN AHUJA Referring Provider Assessment No assessment recorded. Plan of Treatment Reminders Order Date Submit Date Provider Last Modified By Organization Details Last Modified Time Details Appointments None record ed. Lab None record ed. Referral None record ed. Procedures None record ed. Surgeries None record ed. Imaging None record ed. Medication Orders None record ed. Patient TargetsNo targets recorded. Patient Instructions Encounter Date Encounter Id Patient Instructions Last Modified By Organization Details Last Modified Time 03/26/2025 [id number] Follow up as needed. The patient will report any new or worsening symptoms. The patient will return to clinic if new or worsening symptoms are noted, or if if the symptoms do not resolve. If marked worsening of the symptoms is noted the patient will go to the emergency department of their choice. [email or web address] Not available 03/26/2025 11:35:08 Reason for Referral None Reported. Problems Name Problem SNOMED Code Status Onset Date Resolution Date Notes Provider Name and Address Organization Details Recorded Time Morbid obesity 498084421 Completed 201702/13/2024 Jhony Amin APRN [address], [place], [address] , [facility] 4 14:26:21 Lesion of liver 145554863 Active 2017 2.5cm, low density, right lobe Danuta mitchell, [place] - [facility] 0 10:41:41 Prediabe ana 655518396 Active 2018 Jhony JI Amin [address], [place], [address] , [place] - [facility] 4 14:26:16 Degenera tion of lumbar interver tebral disc 26701136 Active 2018 s/p spinal fusion 2019 Jhonyjessica Amin APRN [address], [place], [address] , [place] [facility] 1 13:19:23 Rheumato id arthriti s 54894099 Active 2018 Danuta Turner [facility], [place] - [facility] 0 10:41:41 Hyperten sive disorder 49896469 Active 2020 Jhonyjessica Amin APRN [address], [place], [place], [address] , [place] [facility] 4 14:26:15 Mild depressi on 761438379 Active 2020 Jhony Amin APRN [address], [place], [place], [address] , [place] [facility] 4 14:26:15 [facility] hyperten mary jane 83567927 Completed 201210/24/2016 Keisha Olmstead APRN [address], [place], [place], [address] , [place] [facility] 7 17:32:04 Examinat ion of blood pressure Completed 202002/26/2023 Jhony Amin APRN [address], [place], [place], [address] , [place] [facility] 3 23:56:44 Fluid level behind tympanic membrane Completed 202002/26/2023 Jhony Amin APRN [address], [place], [address] , [place] [facility] 3 23:56:30 Body mass index 40+ - severely obese 035815182 Active 2020 Jhony Amin APRN [address], [place], [address] , [place] [facility] 4 14:26:16 Benign paroxysm al position al vertigo 901333971 Completed 202102/13/2024 Jhony Amin, SQL DEVELOPER [address], [place], [address] , [place] [facility] 4 14:26:27 Varicose veins of lower extremit y 50479054 Active 2021 Jhony Amin [employer] [address], [place], [address] , [place] [facility] 4 14:26:16 Anxiety 38742286 Active 2021 Jhony Amin APRN [address], [place], [address] , [place] [facility] 4 14:26:16 Spinal stenosis in cervical region 15808523 Active 2022 cervical spinal fusion 12/2023, [facility], Dr. Twila Amin, [employer] [address], [place], [address] , [place] [facility] 4 14:26:16 Gastroes ophageal reflux disease 239142381 Active Jhony Amin APRN [address], [place], [address] , [place] [facility] 4 14:26:16 Fibromya lgia 335596822 Active Jhony Amin APRN [address], [place], [address] , [place] [facility] 4 14:26:16 Asthma 463006492 Active Delores Foster [facility], [place] - [facility] 3 13:52:13 Inflamma tion of sacroili ac joint 06305630 Completed 202302/13/2024 Jhony Amin APRN [address], [place], [address] , [place] [facility] 4 14:21:29 Spinal stenosis of thoracic region 92815547 Active 2023 thoracic fusion, 05/2022, Dr. Twila Amin, [employer] [address], [place], [address] , [place] [facility] 4 14:26:15 History of spinal fusion 89966036444 107 Active 2023 lumbar 2019, thoracic 2021, cervical 2023, [facility], Dr. Mattson , [facility] Jhony Bettsall, SQL DEVELOPER [address], [place], [address] , [place] [facility] 4 14:27:20 Acute bilatera l otitis media with effusion 01322977419 07 Active 2023 Merly Uribe, SQL DEV[employer]OPER [address], [place], [address] , [place] [facility] 4 14:24:16 Chronic serous otitis media 78736823 Active 2023 Merly Uribe, SQL DEVELOPER [address], [place], [address] , [place] [facility] 4 14:28:48 Urgent desire to urinate 85762477 Completed 202312/17/2024 Trina Perez, SQL DEVELOPER [address], [place], [address] , [place] [facility] 5 20:50:43 History of calculus of kidney 316953205 Active 2023 Trina Perez, SQL DEV[employer]OPER [address], [place], [address] , [place] [facility] 4 15:07:20 Upper respirat ory infectio n 27838503 Active 2023 Cara Smith APRN [address], [place], [address] , [place] [facility] 4 15:51:12 Acute otitis externa 41852130 Active 2023 Cara Smith APRN [address], [place], [address] , [place] [facility] 4 16:27:54 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 2023 Cara Smith, SQL DEVELOPER [address], [place], [address] , [place] [facility] 4 16:00:23 Costal chondrit is 31560152 Active 2023 Cara Smith APRN [address], [place], [address] , [place] [facility] 4 16:00:43 Pneumoni a 799056769 Active 2023 Cara Smith, SQL DEVELOPER [address], [place], [address] , [place] [facility] 4 10:09:03 Low back pain co-occur rent with neuralgi a of right sciatic nerve 32197988980 9105 Active 2024 Cara Smith, SQL DEVELOPER [address], [place], [address] , [place] [facility] 5 13:56:53 Peripher al demyelin ating neuropat hy 12151757 Active 2024 Cara Smith, SQL DEVELOPER [address], [place], [address] , [place] [facility] 5 10:09:41 Inconclu sive mammogra phy finding 13369223616 9104 Active 2024 Faint nodular opacity right breast MLO view. Recommen d exaggera romeo CC view to get more medial breast tissue with marking of any moles or palpable cutaneou s lesions. Sonograp hy will also be necessar misty Perez, SQL DEVELOPER [address], [place], [address] , [place] [facility] 5 11:04:54 Seasonal allergy 987038401 Active 2024 Cara Smith, SQL DEVELOPER [address], [place], [address] , [place] [facility] 5 16:35:36 Unrefres hed by sleep 135178779 Active 2024 Cara STACEY SmithN [address], [place], [address] , [place] [facility] 5 16:20:12 Peripher al neuropat hic pain 502056553 Active 2024 Cara VazquezJI dave [address], [place], [address] , [place] [facility] 5 11:51:27 Type 2 diabetes mellitus 24438524 Active 2024 Cara Smith, SQL DEVELOPER [address], [place], [address] , [place] - [facility] 12:37:11 Preproce dural examinat ion done 83047302797 4104 Active 2024 Cara Smith, SQL DEVELOPER [address], [place], [address] , [place] - [facility] 5 11:35:08 Problem Notes None recorded. Procedures Surgical History Date Name Laterality Status Provider Name and Address Organization Details Recorded Time 12/18/19 25 Date of Last Pap Smear completed Danuta Turner [place] - [facility] 12/19/2024 16:29:11 11/21/19 25 Date of Last Mammogram completed Trina Perez APRN [address], [place], [address], [place] - [facility] 11/24/2024 11:05:51 05/31/20 23 Back Surgery completed Trina Perez APRN [address], [place], [address], [place] - [facility] 08/22/2023 11:32:26 08/29/20 22 Skin Tag Removal completed Jhony Amin APRN [address], [place], [address], [place] - [facility] 08/29/2022 22:26:23 09/12/20 19 I&D completed Zeb Smith MD [address], [place], [address], [place] - [facility] 09/12/2019 16:07:05 07/28/20 19 Systolic B/P less than 130 mm Hg [facility] [place] [facility] 07/28/2019 10:17:06 07/28/20 19 Diastolic B/P 80-89 mm Hg completed Jessy Orosco [place] - [facility] 07/28/2019 10:17:03 08/21/20 18 Systolic B/P less than 130 mm Hg [facility] [place] [facility] 11/08/2018 10:40:19 08/21/20 18 Diastolic B/P 80-89 mm Hg [facility] [place] [facility] 11/08/2018 10:40:24 08/20/19 96 Caesarean Section completed Trina Perez APRN [address], [place], [address], [place] - [facility] 08/22/2023 11:32:26 04/15/19 95 Dilation and Curettage, sharp completed Trina MullerSTACEY segoviaN [address], [place], [address], [place] - [facility] 08/22/2023 11:32:26 10/08/18 94 dental surgery completed Trina Perez APRN [address], [place], [address], [place] - [facility] 08/22/2023 11:32:26 10/08/18 92 Tonsillectomy completed Trina Perez APRN [address], [place], [address], [place] [facility] 08/22/2023 11:32:26 primary posterior fusion of thoracic spine completed Jhony Amin APRN [address], [place], [address], [place] [facility] 08/29/2022 22:05:30 lumbar spinal fusion completed Jhony Amin APRN [address], [place], [address], [place] [facility] 08/29/2022 22:05:57 Caesarean Section completed Jocelyn Lay [place] - [facility] 10/24/2016 17:06:06 Tonsillectomy completed Fany Lay [place] - [facility] 10/24/2016 17:07:56 Anal fistula repair completed Fany Lay [place] - [facility] 10/24/2016 17:07:04 fusion of joint of cervical spine by anterior approach for deformity of cervical spine completed Jhony Amin APRN [address], [place], [address], [place] - [facility] 01/21/2024 18:20:20 Nl removal calculus completed Fany Lay [place] - [facility] 10/24/2016 17:07:44 Imaging Results None recorded. Procedure Notes None recorded. Medical Equipment None Reported. Allergies Allergen ID Allergen Name Allergen Category Reaction Reaction Severity Criticality Documentation Date Start Date Code Code System Note Provider Name and Address Organization Details Recorded Time 452861 Substance with sulfonami de structure and antibacte rial mechanism of action (substanc e) medicatio n rash Not available Not available 09/26/2019 68300 8003 SNOMED Mora Beni null, [place] - [facility] 9 13:30:15 448706 metoprolo l Not available facial swelling itching severe severe high 07/03/2023 6918 RxNorm Gladis Tapia [place], [place] - [facility] 3 15:05:52 244940 methotrex ate medicatio n Not available Not available Not available 07/07/2024 6851 RxNorm lungs got worse . Merly Rony , SQL DEVELOPER [address], [place], [address], [place] - [facility] 4 13:58:42 76436 lisinopri l medicatio n Not available Not available Not available 07/14/20162009 01979 RxNorm Danuta Turner null, [place] - [facility] 0 10:26:54 51162 lisinopri l medicatio n respirato ry distress severe Not available 09/26/2016 19387 RxNorm Jacob jay null, [place] - [facility] 6 08:45:55 Medications Name Sig Start Date Stop Date Status Note LastModified by Organization Details LastModified Time Prescript ion - Renewal 11/30 completed [facility] Not Available Not Available Not Available ciprodex 0.3-0.1 % susp 10/24 completed Not Available Not Available Not Available clindamyc in hcl 300 mg caps 05/23 completed Not Available Not Available Not Available omeprazol e 20 mg cpdr 07/28 completed Not Available Not Available Not Available celecoxib 200 mg caps Take one capsule daily active Not Available Not Available No t Available amoxicill in/clavul anate potassium 875-125 mg tabs 12/07 completed Not Available Not Available Not Available xerese 5-1 % crea 10/24 completed Not Available Not Available Not Available hydrochlo rothiazid e 25 mg tabs 03/03 completed Not Available Not Available Not Available methotrex ate 2.5 mg tabs 05/23 completed Not Available Not Available Not Available hydroxych loroquine sulfate 200 mg tabs 05/23 completed Not Available Not Available Not Available medroxypr ogesteron e acetate 10 mg tabs 05/23 completed Not Available Not Available Not Available cipro hc 0.2-1 % susp 11/30 completed Not Available Not Available Not Available promethaz ine-dm 6.25-15 mg/5ml syrp 07/05 completed Not Available Not Available Not Available promethaz ine/pheny lephrine 6.25-5 mg/5ml syrp 05/23 completed Not Available Not Available Not Available gabapenti n 300 mg caps 12/07 completed Not Available Not Available Not Available phenazopy ridine hcl 200 mg tabs 10/24 completed Not Available Not Available Not Available sulfameth oxazole/t rimethopr im ds 800-160 mg tabs 09/26 completed Not Available Not Available Not Available azithromy doreen 250 mg tabs 05/23 completed Not Available Not Available Not Available amoxicill in/clavul anate potassium 500-125 mg tabs 10/24 completed Not Available Not Available Not Available sprintec 28 .25-35 mg-mcg tabs 10/24 completed Not Available Not Available Not Available folic acid 1 mg tabs take one tablet once a day 09/15 completed Not Available Not Available Not Available symbicort 160-4.5 mcg/act aero 10/24 completed Not Available Not Available Not Available amoxicill in 500 mg caps 09/12 completed Not Available Not Available Not Available neomycin/ polymyxin /hydrocor tisone 3.5-45226 -1 soln 10/24 completed Not Available Not Available Not Available prednison e 5 mg tabs 05/23 completed Not Available Not Available Not Available prednison e 10 mg tabs 09/15 completed Not Available Not Available Not Available meloxicam 15 mg tabs 10/24 completed Not Available Not Available Not Available cefuroxim e axetil 500 mg tabs 05/23 completed Not Available Not Available Not Available cyclobenz aprine hcl 10 mg tabs 10/24 completed Not Available Not Available Not Available benzonata te 100 mg caps 05/23 completed Not Available Not Available Not Available aviane 0.1-20 mg-mcg tabs 12/07 completed Not Available Not Available Not Available ciproflox acin hcl 500 mg tabs 10/24 completed Not Available Not Available Not Available sronyx 0.1-20 mg-mcg tabs 12/17 completed Not Available Not Available Not Available neomycin/ polymyxin /hydrocor tisone 3.5-54037 -1 susp 09/15 completed Not Available Not Available Not Available clindamyc in hcl 150 mg caps 09/26 completed Not Available Not Available Not Available cephalexi n 500 mg caps 09/15 completed Not Available Not Available Not Available acyclovir 800 mg tabs 10/24 completed Not Available Not Available Not Available prednison e 20 mg tabs 05/23 completed Not Available Not Available Not Available azithromy doreen 500 mg tabs 10/24 completed Not Available Not Available Not Available sertralin e hcl 50 mg tabs 12/07 completed Not Available Not Available Not Available fluticaso ne propionat e 50 mcg/act susp 05/23 completed Not Available Not Available Not Available mupirocin 2 % oint 09/26 completed Not Available Not Available Not Available celecoxib 200 mg capsule TAKE 1 CAPSULE BY MOUTH ONCE DAILY WITH MEALS active Not Available Not Available No t Available cyclobenz aprine 10 mg tablet take 1 tablet (10 mg) by oral route 3 times per day for 30 days 05/25 completed cycloben zaprine 10 mg oral tablet;P rescribe Status: Prescrib ed on: 05/10/20 15 3:14PM;D iscontin ued Status: Disconti nued on: 05/25/20 15 3:34PM;U ser: kb guzman;Est. Completi on: 08/08/20 15;Pharm acyVerif ied: 05/10/20 15 3:14PM Not Available Not Available Not Available amoxicill in 500 mg capsule TAKE 1 CAPSULE BY MOUTH TWICE DAILY FOR 10 DAYS 07/07 completed Not Available Not Available Not Available Neurontin 250 mg/5 mL oral solution 03/03 completed Not Available Not Available Not Available metformin 500 mg tablet Take 1 tablet every day by oral route as directed . active Not Available Not Available No t Available promethaz ine-DM 6.25 mg-15 mg/5 mL oral syrup Take 5 mL every 6 hours by oral route as needed for 5 days. 05/23 completed Not Available Not Available Not Available neomycin- polymyxin -hydrocor t 3.5 mg/mL-10, 000 unit/mL-1 % ear solution INSTILL 4 DROPS INTO AFFECTED EAR(S) BY OTIC ROUTE 3 TIMES PER DAY 10/24 completed Not Available Not Available Not Available Aviane 0.1 mg-20 mcg tablet Take 1 tablet by mouth once daily 08/22 completed Not Available Not Available Not Available prednison e 10 mg tablet STOP TAKING ALL NSAIDS -- TAKE 4 TABLETS BY MOUTH ONCE DAILY FOR 2 DAYS, THEN TAKE 3 TABLETS ONCE DAILY FOR 2 DAYS, THEN 2 TABLETS ONCE DAILY FOR 2 DAYS, THEN 1 TABLET ONCE DAILY FOR 2 DAYS, THEN 1/2 TABLET DAILY FOR 2 DAYS 01/27 completed Not Available Not Available Not Available gabapenti n 600 mg tablet TAKE 1 TABLET BY MOUTH IN THE EVENING active Not Available Not Available No t Available doxycycli ne hyclate 100 mg capsule Take 1 capsule twice a day by oral route as directed for 10 days. 10/20 completed Not Available Not Available Not Available Depo-Medr ol 40 mg/mL suspensio n for injection Take 80 mg by injectio n route. 12/18 completed Not Available Not Available Not Available Zyrtec-D 5 mg-120 mg tablet,ex tended release take 1 tablet by oral route 2 times per day for 10 days 12/17 completed Zyrtec-D 5-120 mg oral tablet extended release 12 hr;Presc ribe Status: Prescrib ed on: 11/01/19 16 4:55PM;D iscontin ued Status: Disconti nued on: 04/11/20 16 2:52PM;U ser: kb guzman;Est. Completi on: 11/11/19 16;Pharm acyVerif ied: 11/01/19 16 4:55PM Not Available Not Available Not Available clindamyc in HCl 300 mg capsule Take one capsule three times a day 06/04 completed Not Available Not Available Not Available cetirizin e 10 mg tablet TAKE 1 TABLET BY MOUTH ONCE DAILY DIRECTED FOR ALLERGIE S active Not Available Not Available No t Available atorvasta tin 10 mg tablet Take 1 tablet every day by oral route at bedtime for 30 days. 03/26 completed Not Available Not Available Not Available lisinopri l 20 mg-hydroc hlorothia zide 12.5 mg tablet take 1 tablet by oral route once daily for 90 days 05/27 completed lisinopr il-hydro chloroth iazide 20-12.5 mg oral tablet;R ecorded Status: Recorded on: 04/01/20 10 10:15AM; Disconti nued Status: Disconti nued on: 05/27/20 10 10:44AM; User: kb guzman;Est. Completi on: 06/30/20 10 Not Available Not Available Not Available azithromy doreen 250 mg tablet TAKE 2 TABLETS TODAY, THEN TAKE 1 TABLET EVERY DAY FOR 4 DAYS 08/22 completed Not Available Not Available Not Available ofloxacin 0.3 % eye drops INSTILL 1 DROP INTO LEFT EYE 4 TIMES DAILY 10/17 completed Not Available Not Available Not Available tizanidin e 4 mg tablet TAKE 1/2 - 1 TABLET BY MOUTH THREE TIMES A DAY FOR PAIN AND MUSCLE SPASM. DISCONTI NUE OTHER MUSCLE RELAXERS . 01/27 completed Not Available Not Available Not Available fluconazo le 150 mg tablet TAKE 1 TABLET BY MOUTH EVERY OTHER DAY FOR 7 DAYS 11/28 completed Not Available Not Available Not Available hydrochlo rothiazid e 50 mg tablet Take by oral route. 03/24 completed Not Available Not Available Not Available Lotrisone 1 %-0.05 % topical cream apply to affected area 06/16 completed lotrison e cream;Re corded Status: Recorded on: 02/05/20 14 9:35AM;D iscontin ued Status: Disconti nued on: 06/16/20 14 9:44AM;U ser: kb guzman;Est. Completi on: 02/15/20 14;Indic ation: - (-5) Not Available Not Available Not Available hydrocodo ne 5 mg-acetam inophen 325 mg tablet Take 1 tablet every 6 hours by oral route as needed for 3 days. 01/23 completed Not Available Not Available Not Available phenazopy ridine 200 mg tablet TAKE ONE (1) TABLET THREE (3) TIMES A DAY BY ORAL ROUTE FOR TWO (2) DAYS. 07/17 completed Not Available Not Available Not Available ondansetr on HCl 4 mg tablet TAKE 1 TABLET BY MOUTH EVERY 6 HOURS NEEDED FOR NAUSEA 01/23 completed Not Available Not Available Not Available prednison e 20 mg tablet Take 1 tablet twice a day by oral route for 5 days. 12/17 completed Not Available Not Available Not Available gabapenti n 400 mg capsule TAKE 1 CAPSULE BY MOUTH ONCE DAILY DURING THE DAY active Not Available Not Available No t Available Zoloft 20 mg/mL oral concentra te 03/03 completed Not Available Not Available Not Available clindamyc in HCl 150 mg capsule TAKE 1 CAPSULE BY MOUTH EVERY 6 HOURS FOR 10 DAYS 05/18 completed Not Available Not Available Not Available folic acid 20 mg capsule Take by oral route. 11/08 completed Not Available Not Available Not Available penicilli n V potassium 500 mg tablet TAKE 1 TABLET BY MOUTH 4 TIMES DAILY UNTIL GONE 01/27 completed Not Available Not Available Not Available lincomyci n 300 mg/mL injection solution Take 1 mL by injectio n route. 02/24 completed Not Available Not Available Not Available Biaxin 500 mg tablet take 1 tablet (500 mg) by oral route 2 times per day for 7 days 05/10 completed Biaxin 500 mg oral tablet;P rescribe Status: Prescrib ed on: 03/29/20 15 3:25PM;D iscontin ued Status: Disconti nued on: 05/10/20 15 1:40PM;U ser: kb guzman;Est. Completi on: 04/05/20 15;Pharm acyVerif ied: 03/29/20 15 3:25PM Not Available Not Available Not Available dextromet horphan-g uaifenesi n 10 mg-100 mg/5 mL oral syrup take 10 millilit ers by oral route every 4 hours as needed for 10 days 06/16 completed dextrome thorphan -guaifen esin 10-100 mg/5 mL oral syrup;Pr escribe Status: Prescrib ed on: 12/11/19 14 1:35PM;D iscontin ued Status: Disconti nued on: 06/16/20 14 9:44AM;U ser: Day Cobb on: 12/21/19 14;Pharm claribelyVlilly ied: 12/11/19 14 1:35PM Not Available Not Available Not Available hydrocodo ne 10 mg-acetam inophen 325 mg tablet Take 1 tablet every 8 hours by oral route as needed for 3 days. 12/18 completed Not Available Not Available Not Available omeprazol e 40 mg capsule,d elayed release Take by oral route. 05/18 completed Not Available Not Available Not Available tramadol 50 mg tablet TAKE 1 TABLET BY MOUTH EVERY 6 HOURS FOR PAIN active Not Available Not Available No t Available acyclovir 800 mg tablet take 1 tablet (800 mg) by oral route 4 times per day for 10 days 04/11 completed acyclovi r 800 mg oral tablet;P rescribe Status: Prescrib ed on: 01/18/20 16 4:36PM;D iscontin ued Status: Disconti nued on: 04/11/20 16 2:52PM;U ser: kb Cobb on: 01/28/20 16;Pharm Destin ied: 01/18/20 16 4:36PM Not Available Not Available Not Available carvedilo l 3.125 mg tablet TAKE 1 TABLET BY MOUTH TWICE DAILY active Not Available Not Available No t Available Depo-Medr ol 80 mg/mL suspensio n for injection Take 80 mg by injectio n route. 02/26 completed Not Available Not Available Not Available Macrobid 100 mg capsule take 1 capsule (100 mg) by oral route every 12 hours with food for 7 days 09/05 completed Macrobid 100 mg oral capsule; Recorded Status: Recorded on: 06/09/20 11 1:41PM;D iscontin ued Status: Disconti nued on: 09/05/20 11 10:04AM; User: jonas Cobb on: 06/16/20 11;Print ed: 06/09/20 11 Not Available Not Available Not Available garlic 1,000 mg capsule Take 1 capsule every day by oral route. active Not Available Not Available No t Available Mobic 15 mg tablet take 1 tablet (15 mg) by oral route once daily for 14 days 01/12 completed Mobic 15 mg oral tablet;P rescribe Status: Prescrib ed on: 12/29/19 16 3:21PM;D iscontin ued Status: Disconti nued on: 01/13/20 16 3:41PM;U ser: markesbe ryh;Est. Completi on: 01/12/20 16;Pharm acyVerif ied: 12/29/19 16 3:21PM Not Available Not Available Not Available oxycodone -acetamin ophen 5 mg-325 mg tablet TAKE 1 TABLET BY MOUTH EVERY 6 HOURS NEEDED FOR PAIN 08/22 completed Not Available Not Available Not Available ceftriaxo ne 1 gram solution for injection Take 1 g by injectio n route. 11/20 completed Not Available Not Available Not Available ofloxacin 0.3 % ear drops INSTILL 10 DROPS INTO AFFECTED EAR(S) BY OTIC ROUTE ONCE DAILY 11/12 completed Not Available Not Available Not Available Celebrex 100 mg capsule Take 1 capsule every day by oral route. 11/03 completed Not Available Not Available Not Available methocarb leonila 750 mg tablet TAKE 1 TABLET BY MOUTH EVERY 6 HOURS NEEDED FOR MUSCLE SPASM 02/12 completed Not Available Not Available Not Available DOK 100 mg capsule TAKE 1 CAPSULE BY MOUTH TWICE DAILY 05/09 completed Not Available Not Available Not Available Diflucan 100 mg tablet take 1 tablet (100 mg) by oral route once daily for 7 days 06/16 completed Diflucan 100 mg oral tablet;P rescribe Status: Prescrib ed on: 02/05/20 14 10:42AM; Disconti nued Status: Disconti nued on: 06/16/20 14 9:44AM;U ser: markesbe ryh;Est. Completi on: 02/12/20 14;Pharm acyVerif ied: 02/05/20 14 10:42AM Not Available Not Available Not Available imiquimod 5 % topical cream packet APPLY TO THE AFFECTED AREA(S) BY TOPICAL ROUTE 5 TIMES PER WEEK 06/03 completed Not Available Not Available Not Available meclizine 25 mg tablet TAKE 1 TABLET BY MOUTH THREE TIMES DAILY NEEDED FOR 10 DAYS 05/09 completed Not Available Not Available Not Available amlodipin e 10 mg tablet Take 1 tablet every day by oral route for 30 days. 08/22 completed Not Available Not Available Not Available potassium citrate ER 10 mEq (1,080 mg) tablet,ex tended release Take by oral route. 2019 active Not Available Not Available Not Avai lable benzonata te 100 mg capsule Take 1 capsule 3 times a day by oral route as needed. 02/03 completed Not Available Not Available Not Available cephalexi n 500 mg capsule TAKE 1 CAPSULE BY MOUTH THREE TIMES DAILY FOR 7 DAYS 12/18 completed Not Available Not Available Not Available Cipro 500 mg tablet take 1 tablet (500 mg) by oral route 2 times per day for 10 days 10/24 completed Cipro 500 mg oral tablet;P rescribe Status: Prescrib ed on: 12/11/19 14 1:35PM;D iscontin ued Status: Disconti nued on: 06/16/20 14 9:44AM;U ser: gored;Es t. Completi on: 12/21/19 14;Pharm acyVerif ied: 12/11/19 14 1:35PM Not Available Not Available Not Available gabapenti n 300 mg capsule Take 1 capsule by mouth twice daily 08/29 completed Not Available Not Available Not Available sertralin e 25 mg tablet Take 1 tablet by mouth once daily active Not Available Not Available No t Available omeprazol e 20 mg capsule,d elayed release TAKE 1 CAPSULE BY MOUTH ONCE DAILY IN THE MORNING active Not Available Not Available No t Available diclofena c sodium 75 mg tablet,de layed release TAKE 1 TABLET BY MOUTH TWICE DAILY DIRECTED active Not Available Not Available No t Available Provera 10 mg tablet Take 1 tablet every day by oral route for 10 days. 12/13 completed Not Available Not Available Not Available folic acid 1 mg tablet TAKE 1 TABLET BY MOUTH ONCE DAILY 12/18 completed Not Available Not Available Not Available hydrochlo rothiazid e 25 mg tablet TAKE 1 TABLET BY MOUTH ONCE DAILY active Not Available Not Available No t Available mupirocin 2 % topical ointment APPLY A SMALL AMOUNT INTRANAS AL BID X 5 DAYS 2018 active Not Available Not Available Not Avai lable furosemid e 20 mg tablet TAKE 1 TABLET BY MOUTH ONCE DAILY IN THE MORNING FOR 3 DAYS 05/29 completed Not Available Not Available Not Available metoprolo l succinate ER 25 mg tablet,ex tended release 24 hr TAKE 1 TABLET BY MOUTH ONCE DAILY FOR 90 DAYS 07/03 completed Not Available Not Available Not Available ergocalci ferol (vitamin D2) 1,250 mcg (50,000 unit) capsule Take 1 capsule by mouth once a week active Not Available Not Available No t Available dexametha sone sodium phosphate 4 mg/mL injection solution Inject 2 mL by intramus cular route. 03/13 completed Not Available Not Available Not Available epinephri ne 0.3 mg/0.3 mL injection , auto-inje ctor INJECT CONTENTS OF 1 PEN NEEDED FOR ALLERGIC REACTION active Not Available Not Available No t Available Miguelangel-Tab 500 mg tablet,de layed release take 1 tablet (500 mg) by oral route 2 times per day for 10 days 05/27 completed Miguelangel-Tab 500 mg oral tablet,d elayed release (DR/EC); Recorded Status: Recorded on: 10/19/19 10 1:23PM;D iscontin ued Status: Disconti nued on: 05/27/20 10 10:44AM; User: janell;Gaetano tAurelio Completi on: 10/29/19 10;Print ed: 10/19/19 10 Not Available Not Available Not Available Cipro HC 0.2 %-1 % ear drops,ignacia pension INSTILL 3 DROPS INTO AFFECTED EAR(S) BY OTIC ROUTE EVERY 12 HOURS 11/30 completed Not Available Not Available Not Available cefuroxim e axetil 500 mg tablet take 1 tablet (500 mg) by oral route 2 times per day for 10 days 11/20 completed Not Available Not Available Not Available methylpre dnisolone 4 mg tablets in a dose pack TAKE DIRECTED PER INSIDE DIRECTIO NS 07/17 completed Not Available Not Available Not Available albuterol sulfate HFA 90 mcg/actua tion aerosol inhaler INHALE 2 PUFFS BY MOUTH EVERY 4 HOURS NEEDED 12/17 completed Not Available Not Available Not Available coybaldev crook (contrace ptive) 0.35 mg tablet Take 1 tablet by mouth once daily 03/26 completed Not Available Not Available Not Available fluticaso ne propionat e 50 mcg/actua tion nasal spray,ignacia pension SPRAY ONE (1) SPRAY EVERY DAY BY INTRANAS AL ROUTE. active Not Available Not Available No t Available metformin ER 500 mg tablet,ex tended release 24 hr Take 1 tablet every day by oral route. 2023 active Not Available Not Available Not Avai lable sertralin e 50 mg tablet Take 1 tablet by mouth once daily 03/13 completed Not Available Not Available Not Available Augmentin 500 mg-125 mg tablet Take one tablet by mouth three times a day 12/23 completed Augmenti n 500-125 mg oral tablet;P rescribe Status: Prescrib ed on: 11/01/19 16 4:55PM;D iscontin ued Status: Disconti nued on: 12/24/19 16 2:54PM;U ser: kb guzman;Est. Completi on: 11/11/19 16;Pharm acyVerif ied: 11/01/19 16 4:55PM Not Available Not Available Not Available Ortho Tri-Cycle n (28) 0.18 mg(7)/0.2 15mg(7)/0 .25 mg(7)-0.0 35 mg tablet take 1 tablet by oral route once daily 06/24 completed Ortho Tri-Cycl en (28) 0.18/0.2 15/0.25 mg-35 mcg (28) oral tablet;R ecorded Status: Recorded on: 11/09/19 11 10:48AM; Disconti nued Status: Disconti nued on: 06/24/20 14 3:57PM;U ser: yoni Not Available Not Available Not Available amoxicill in 875 mg-potass ium clavulana te 125 mg tablet Take 1 tablet every 12 hours by oral route for 10 days. 11/12 completed Not Available Not Available Not Available Maxzide 75 mg-50 mg tablet take 1 tablet by oral route once daily for 30 days 09/05 completed Maxzide 75-50 mg oral tablet;R ecorded Status: Recorded on: 04/11/20 11 1:50PM;D iscontin ued Status: Disconti nued on: 09/05/20 11 10:04AM; User: nabil;Es t. Completi on: 07/10/20 11;Indic ation: Hyperten mary jane - ([id number] );Prin romeo: 04/11/20 11 Not Available Not Available Not Available magnesium 250 mg (as magnesium oxide) tablet Take by oral route. 08/29 completed Not Available Not Available Not Available neomycin- polymyxin -hydrocor t 3.5 mg-10,000 unit/mL-1 % ear drops,ignacia p INSTILL FOUR (4) DROPS INTO AFFECTED EAR(S) BY OTIC ROUTE THREE (3) TO FOUR (4) TIMES PER DAILY 10/20 completed Not Available Not Available Not Available Bactrim DS 800 mg-160 mg tablet Take 1 tablet twice a day by oral route for 10 days. 09/26 completed Not Available Not Available Not Available azithromy doreen 500 mg tablet take 1 tablet (500 mg) by oral route once daily for 7 days 04/25 completed azithrom ycin 500 mg oral tablet;P rescribe Status: Prescrib ed on: 04/18/20 16 1:27PM;U ser: kb guzman;Est. Completi on: 04/25/20 16;Pharm acyVerif ied: 04/18/20 16 1:27PM Not Available Not Available Not Available Sprintec (28) 0.25 mg-0.035 mg tablet TAKE ONE TABLET BY MOUTH ONCE DAILY 10/24 completed Not Available Not Available Not Available guaifenes in 400 mg tablet take 2 tablets by oral route 3 times a day for 7 days 04/11 completed guaifene sin 400 mg oral tablet;R ecorded Status: Recorded on: 11/09/19 11 11:32AM; Disconti nued Status: Disconti nued on: 04/11/20 11 1:11PM;U ser: nabil;Es t. Completi on: 11/16/19 11;Indic ation: Cough - ([id number] 00);Prin romeo: 11/09/19 11 Not Available Not Available Not Available Gyne-Lotr imin 2 % vaginal cream apply 1 applicat orful by vaginal route once a day (at bedtime) for 7 days 02/14 completed Gyne-Lot rimin 2 % vaginal cream;Re corded Status: Recorded on: 06/19/20 12 12:12PM; Disconti nued Status: Disconti nued on: 02/15/20 13 2:00PM;U ser: kb brittonarron;Est. Completi on: 06/26/20 12;Indic ation: Cystitis , Acute - (595.0); Printed: 06/19/20 12 Not Available Not Available Not Available Ciprodex 0.3 %-0.1 % ear drops,ignacia pension instill 4 drops into affected ear(s) by otic route 2 times per day for 7 days 10/20 completed Not Available Not Available Not Available cinnamon bark 500 mg capsule Take by oral route. 08/22 completed HAS STOPPPED FOR SURGERY Not Available Not Available Not Available duloxetin e 30 mg capsule,d elayed release TAKE 1 CAPSULE BY MOUTH ONCE DAILY DIRECTED FOR 30 DAYS active Not Available Not Available No t Available gabapenti n 400 mg tablet Take 1 tablet in the AM and 1.5 tablets in the PM 01/27 completed Not Available Not Available Not Available magnesium 1 po by oral route daily active Not Available Not Available No t Available Cortispor in 1-2 gtts tid 05/09 completed cortispo rin;Erik rded Status: Recorded on: 03/06/20 12 11:47AM; Disconti nued Status: Disconti nued on: 05/09/20 12 3:45PM;U ser: markesbe ryh;Est. Completi on: 03/13/20 12;Indic ation: - (-5);Tisha nted: 03/06/20 12 Not Available Not Available Not Available acyclovir 1 qid 01/17 completed acyclorv ir 800 mg;Recor ded Status: Recorded on: 01/18/20 16 4:23PM;D iscontin ued Status: Disconti nued on: 01/18/20 16 4:35PM;U ser: markesbe ryh;Est. Completi on: 01/25/20 16;Indic ation: - (-5) Not Available Not Available Not Available oxycodone 1 q12h prn pain 05/25 completed oxycodon e;Record ed Status: Recorded on: 05/10/20 15 1:56PM;D iscontin ued Status: Disconti nued on: 05/25/20 15 3:34PM;U ser: markesbe ryh;Est. Completi on: 05/17/20 15;Indic ation: - (-5) Not Available Not Available Not Available azithromy doreen 1 qd 06/16 completed azithrom ycin 500mg;Re corded Status: Recorded on: 02/05/20 14 9:35AM;D iscontin ued Status: Disconti nued on: 06/16/20 14 9:44AM;U ser: markesbe ryh;Est. Completi on: 02/15/20 14;Indic ation: - (-5) Not Available Not Available Not Available vitamin E 1 po by oral route daily active Not Available Not Available No t Available zinc 1 po by oral route daily active Not Available Not Available No t Available omeprazol e 20mg qd 02/25 completed Not Available Not Available Not Available Ceftin 1 bid 03/29 completed ceftin 500 mg;Recor ded Status: Recorded on: 02/25/20 15 11:21AM; Disconti nued Status: Disconti nued on: 03/29/20 15 3:16PM;U ser: markesbe ryh;Est. Completi on: 03/06/20 15;Indic ation: - (-5) Not Available Not Available Not Available Diflucan 1 qd 06/16 completed diflucan 100mg;Re corded Status: Recorded on: 02/05/20 14 9:35AM;D iscontin ued Status: Disconti nued on: 06/16/20 14 9:44AM;U ser: markesbe ryh;Est. Completi on: 02/12/20 14;Indic ation: - (-5) Not Available Not Available Not Available methotrex ate takes 6 1 time per week, forgets mg 09/15 completed not taking Not Available Not Available Not Available Augmentin 1 tid 11/01 completed augmenti n 500 mg;Recor ded Status: Recorded on: 11/01/19 16 4:21PM;D iscontin ued Status: Disconti nued on: 11/01/19 16 4:54PM;U ser: kb guzman;Est. Completi on: 11/11/19 16;Indic ation: - (-5) Not Available Not Available Not Available tramadol 1 q8h 02/14 completed tramadol 50mg;Rec orded Status: Recorded on: 05/09/20 12 4:14PM;D iscontin ued Status: Disconti nued on: 02/15/20 13 2:00PM;U ser: [email or web address] rebah;Est. Completi on: 05/19/20 12;Indic ation: - (-5) Not Available Not Available Not Available hydrochlo rothiazid e Take 1 tablet by oral route once a day for 30 days 06/16 completed hctz Oral;Rec orded Status: Recorded on: 03/19/20 13 9:39AM;D iscontin ued Status: Disconti nued on: 06/16/20 14 9:44AM;U ser: [email or web address] ryh;Est. Completi on: 07/17/20 13;Indic ation: None Availabl e - (-5) Not Available Not Available Not Available Pyridium 1 tid 02/14 completed pyridium 100mg;Re corded Status: Recorded on: 06/19/20 12 12:12PM; Disconti nued Status: Disconti nued on: 02/15/20 13 2:00PM;U ser: markesbe ryh;Est. Completi on: 06/26/20 12;Indic ation: - (-5);Tisha nted: 06/19/20 12 Not Available Not Available Not Available Keflex 1 bid 01/17 completed keflex 500 mg;Recor ded Status: Recorded on: 01/18/20 16 4:23PM;D iscontin ued Status: Disconti nued on: 01/18/20 16 4:35PM;U ser: markesbe ryh;Est. Completi on: 01/25/20 16;Indic ation: - (-5) Not Available Not Available Not Available potassium 1 a day 2010 active Not Available Not Available Not Avai lable Biaxin 1 bid 05/10 completed biaxin 500 mg;Recor ded Status: Recorded on: 03/29/20 15 3:16PM;D iscontin ued Status: Disconti nued on: 05/10/20 15 1:40PM;U ser: markesbe ryh;Est. Completi on: 04/05/20 15;Indic ation: - (-5) Not Available Not Available Not Available Cleocin 1 tid 12/28 completed cleocin 300 mg;Recor ded Status: Recorded on: 12/29/19 16 3:02PM;D iscontin ued Status: Disconti nued on: 12/29/19 16 3:20PM;U ser: markesbe ryh;Est. Completi on: 01/08/20 16;Indic ation: - (-5) Not Available Not Available Not Available Flexeril 1 tid 05/25 completed flexeril 10mg;Rec orded Status: Recorded on: 09/09/20 14 3:39PM;D iscontin ued Status: Disconti nued on: 05/25/20 15 3:34PM;U ser: markesbe ryh;Est. Completi on: 10/09/19 15;Indic ation: - (-5) Not Available Not Available Not Available Zyrtec 1 qd 06/17 completed zyrtec;R ecorded Status: Recorded on: 03/11/20 10 11:30AM; Disconti nued Status: Disconti nued on: 06/17/20 10 1:37PM;U ser: markesbe ryh;Est. Completi on: 03/25/20 10;Indic ation: - (-5) Not Available Not Available Not Available Septra DS 1 bid 03/29 completed septra ds;Recor ded Status: Recorded on: 09/09/20 14 3:39PM;D iscontin ued Status: Disconti nued on: 03/29/20 15 3:16PM;U ser: markesbe ryh;Est. Completi on: 09/19/20 14;Indic ation: - (-5) Not Available Not Available Not Available Mobic 1 qd 12/28 completed mobic 15 mg;Recor ded Status: Recorded on: 12/29/19 16 3:02PM;D iscontin ued Status: Disconti nued on: 12/29/19 16 3:20PM;U ser: markesbe ryh;Est. Completi on: 01/12/20 16;Indic ation: - (-5) Not Available Not Available Not Available Zyrtec D 1 bid 11/01 completed zyrtec d;Record ed Status: Recorded on: 11/01/19 16 4:21PM;D iscontin ued Status: Disconti nued on: 11/01/19 16 4:54PM;U ser: markesbe ryh;Est. Completi on: 11/11/19 16;Indic ation: - (-5) Not Available Not Available Not Available Mucinex D 1 bid 11/09 completed mucunex d;Record ed Status: Recorded on: 08/31/20 10 11:17AM; Disconti nued Status: Disconti nued on: 11/09/19 11 10:48AM; User: markesbe rebah;Est. Completisabella on: 09/10/20 10;Indic ation: - (-5);Tisha nted: 08/31/20 10 Not Available Not Available Not Available Symbicort 160 mcg-4.5 mcg/actua tion HFA aerosol inhaler inhale 2 puffs by inhalati on route 2 times per day in the morning and evening for 7 days 04/18 completed Symbicor t 160-4.5 mcg/actu ation inhalati on HFA aerosol inhaler; Prescrib e Status: Prescrib ed on: 04/11/20 16 2:26PM;U ser: kb guzman;Est. Completi on: 04/18/20 16;Pharm acyVerif ied: 04/11/20 16 2:26PM Not Available Not Available Not Available cholecalc iferol (vitamin D3) 1,250 mcg (50,000 unit) capsule TAKE 1 CAPSULE BY MOUTH ONCE A WEEK 05/29 completed Not Available Not Available Not Available Symbicort 1 puff bid 04/11 completed symbicor t 160;Erik rded Status: Recorded on: 04/11/20 16 1:52PM;D iscontin ued Status: Disconti nued on: 04/11/20 16 2:25PM;U ser: kb guzman;EstAurelio Completi on: 05/11/20 16;Indic ation: - (-5) Not Available Not Available Not Available Super B Complex 27 mg-300 mg tablet take 1 tablet by oral route once 2011 active Not Available Not Available Not Avai lable Solu-Medr ol (PF) 40 mg/mL solution for injection Take 40 mg by injectio n route. 10/20 completed Not Available Not Available Not Available Xerese 5 %-1 % topical cream apply to the affected area(s) by topical route 4 times per day for 5 days 04/11 completed Xerese 5-1 % topical cream;Pr escribe Status: Prescrib ed on: 01/19/20 16 4:24PM;D iscontin ued Status: Disconti nued on: 04/11/20 16 2:53PM;U ser: kb guzman;Est. 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 route. 2023 active Not Available Not Available Not Avai lable Move Free Joint Health 750 mg-100 mg-1.65 mg-108 mg tablet Take 1 tablet every day by oral route. 03/26 completed Not Available Not Available Not Available turmeric 400 mg capsule Take 1 capsule every day by oral route. active Not Available Not Available No t Available Mounjaro 2.5 mg/0.5 mL subcutane ous pen injector INJECT 1 PEN SUBCUTAN EOUSLY ONCE A WEEK active Not Available Not Available No t Available Vitals Date Recorded Body height Body mass index (BMI) Body weight Body temperature Respiratory rate Heart rate Oxygen saturation Oxygen saturation in Arterial blood by Pulse oximetry Systolic And Diastolic Provider Name and Address Organization Details Last Updated DateTime 5 163.83 cm 47 kg/m2 692428. 68 g 98 [degF] 18 /min 86 /min 97 % 97 % 132/82 mm[Hg] Corinne Jeffrey [place] - [facility] 5 11:02:44 Social History Question Answer Notes LastModified by Organizat ion Details LastModified Time Tobacco Smoking Status Never Smoker Jacob Lott [place], [place] - [facility] 08/22/2016 13:54:15 Do You Have An Advance Directive? No [email or web address] Information not available 07/05/2017 Are You Blind Or Do You Have Difficulty Seeing? No [email or web address] Information not available 08/22/2023 Is Blood Transfusion Acceptable In An Emergency? Yes Information not available 12/17/2017 What Is Your Level Of Caffeine Consumption? Occasional Information not available 12/17/2017 How Much Tobacco Do You Chew? None Information not available 10/24/2016 Are You Deaf Or Do You Have Serious Difficulty Hearing? No Information not available 07/05/2017 What Type Of Diet Are You Following? REGULAR Information not available 10/24/2016 Which Illicit Or Recreational Drugs Have You Used? Never Information not available 10/24/2016 What Is The Highest Grade Or Level Of School You Have Completed Or The Highest Degree You Have Received? [id number] [email or web address] Information not available 05/06/2018 How Many Days Of Moderate To Strenuous Exercise, Like A Brisk Walk, Did You Do In The Last 7 Days? 1 Information not available 08/22/2023 On Those Days That You Engage In Moderate To Strenuous Exercise, How Many Minutes, On Average, Do You Exercise? 1 Information not available 08/22/2023 How Hard Is It For You To Pay For The Very Basics Like Food, Housing, Medical Care, And Heating? Not Very Hard [email or web address] Information not available 07/07/2024 How Many Years Have You Used Illicit Or Recreational Drugs? 0 [email or web address] Information not available 12/17/2024 Live Alone Or With Others? With Others [email or web address] Information not available 08/22/2023 Last Menstrual Period? 01/21/2024 [email or web address] Information not available 07/17/2024 What Was The Date Of Your Most Recent Tobacco Screening? 12/17/2024 [email or web address] Information not available 12/17/2024 How Many Children Do You Have? 1 [email or web address] Information not available 07/05/2017 Performs Monthly Self-breast Exam? Yes [email or web address] Information no t available 08/22/2023 Do You Use Protection During Sex? Always Information not available 08/22/2023 Do You Use Protection Against STDs? Always [email or web address] Information not available 08/22/2023 What Is Your Relationship Status? Information not available 10/24/2016 Do You Use Your Seat Belt Or Car Seat Routinely? Yes [email or web address] Information not available 08/22/2023 Seat Belts Used Routinely Yes [email or web address] Information not available 08/22/2023 Are You Sexually Active? Yes Information not available 10/24/2016 Smoke Alarm In Home Yes [email or web address] Information not available 08/22/2023 Do You Have Smoke And Carbon Monoxide Detectors In Your Home? Yes [email or web address] Information not available 08/22/2023 Are You Passively Exposed To Smoke? No [email or web address] Information no t available 08/22/2023 How Much Tobacco Do You Smoke? No [email or web address] Information not available 08/22/2023 General Stress Level Medium [email or web address] Information not available 08/22/2023 Do You Use Sunscreen Routinely? Yes [email or web address] Information not available 07/05/2017 Has Tobacco Cessation Counseling Been Provided? Yes [email or web address] Information not available 11/12/2023 On What Date Was Tobacco Cessation Counseling Provided? 12/17/2024 [email or web address] Information not available 12/17/2024 How Many Years Have You Smoked Tobacco? 0 [email or web address] Information not available 08/22/2016 Do You Have Difficulty Walking Or Climbing Stairs? No [email or web address] Information not available 08/22/2023 What Contraceptive Method Was Reported At Start Of This Visit? Progestin Only Contraceptive Pills [email or web address] Information not available 12/17/2024 What Contraceptive Method Was Reported At End Of This Visit? Progestin Only Contraceptive Pills Information not available 08/22/2023 Do You Want To Talk About Contraception Or Prevention During Your Visit Today? No - I Am Already Using Contraception [email or web address] Information not available 08/22/2023 How Was The Contraceptive Method Provided? Prescription [email or web address] Information not available 08/22/2023 Do You Have Any Future Plans To Get ? No, I Don't Want To Become [email or web address] Information not available 08/22/2023 Which Type Of Protection Is Used? Condom [email or web address] Information not available 08/22/2023 Sex: Female Functional Status Question Answer Note LastModified by [employer] ion Details LastModified Time Do you or have you ever used smokeless tobacco? Never used smokeless tobacco [email or web address] Information not available 03/03/2020 Are you currently employed? No [email or web address] Information not available 08/22/2023 Urinary incontinence assessment performed? No [email or web address] Information not available 08/22/2023 Are you able to care for yourself? Yes Information not available 12/17/2024 Do you have difficulty dressing or bathing? No [email or web address] Information not available 08/22/2023 Do you or have you ever used e-cigarettes or vape? Never used electronic cigarettes [email or web address] Information not available 03/03/2020 What is your exercise level? Occasional [email or web address] Information not available 12/17/2024 Do you use any illicit or recreational drugs? No [email or web address] Information not available 01/27/2022 Do you or have you ever used any other forms of tobacco or nicotine? No Information not available 08/22/2023 What is your level of alcohol consumption? None Information not available 10/24/2016 What is your status? Not [email or web address] Information no t available 08/22/2023 Are you able to walk? YESWOREST [email or web address] Information not available 08/22/2023 Do you have difficulty doing errands alone? No [email or web address] Information not available 08/22/2023 Mental Status Question Answer Note LastModified by Organizat ion Details LastModified Time Do you feel stressed (tense, restless, nervous, or anxious, or unable to sleep at night)? [id number] [email or web address] Information not available 05/06/2018 Do you have difficulty concentrating, remembering or making decisions? No [email or web address] Information no t available 08/22/2023 Family History Relationship Description Onset Age of this Age Resolved Age Notes LastModified by Organization Details LastModified Time Paternal Grandfather Family history of Alzheimer's disease [email or web address] Not available 2024 10:43:39 Father Family history of diabetes mellitus [email or web address] Not available 2024 10:43:39 Father Family history of Hypertension [email or web address] Not available 10:43:39 Father Open heart surgery 2010 [email or web address] Not available 2024 10:43:39 Father Malignant neoplasm of lung deceas ed 12/2019 [email or web address] Not available 03/03/2020 17:31:42 Father Aortic aneurysm [email or web address] Not available 2024 10:43:39 Father Hypercholest erolemia [email or web address] Not available 2022 11:32:45 Father Hypertensive disorder Not available 2022 11:32:45 Father Dementia [email or web address] Not availabl e 08/22/2023 11:32:45 Father Heart disease 73 83 [email or web address] Not available 2022 11:32:45 Father Blood coagulation disorder [email or web address] Not available 2022 11:32:45 Father Diabetes mellitus [email or web address] Not available 2022 11:32:45 Father Arthritis Not availab le 12/17/2024 13:23:18 Paternal Grandmother Family history of Myocardial infarction [email or web address] Not available 03/26 10:43:39 Mother Family history of Alzheimer's disease [email or web address] Not available 2024 10:43:39 Mother Dementia [email or web address] Not availabl e 12/17/2024 13:23:18 Mother Alzheimer's disease [email or web address] Not available 2024 10:43:39 Mother Cerebrovascu lar accident [email or web address] Not available 11:32:45 Mother Arthritis [email or web address] Not availab le 08/22/2023 11:32:45 Brother Arthritis [email or web address] Not availa ble 12/17/2024 13:23:18 Brother Hypertensive disorder [email or web address] Not available 2022 11:32:45 Brother Obesity [email or web address] Not availabl e 08/22/2023 11:32:45 Brother Chronic inflammatory demyelinatin g polyradiculo neuropathy 63 [email or web address] Not available 03/26 10:43:39 Medical History Condition Response Pancreatitis N Other N Atrial Fibrillation N congenital heart disease N Blood Diseases N Kidney Stones Y Hyperthyroidism N Blood Transfusion N Rheumatoid arthritis N Erectile Dysfunction N amputation N Skin Lesions N Depression Y Pneumonia N Incontinence N Murmur N Edema N Alzheimer's Disease N Migraine Headaches N Tobacco Abuse N Anxiety Disorder Y Hemorrhoids N Muscle, Joint, or Bone Problems Y Obesity Y Vision or Eye Problems Y Arthritis Y Restless Leg Syndrome N Polyps N Infertility N Carpal Tunnel N Acid Reflux (GERD) Y Cancer N Varicosities N Stroke N Tendonitis N Crohn's Disease N Hypercholesterolemia N Skin Cancer N Headaches Y Fibromyalgia Y Irritable Bowel Syndrome Y Anal Fissure N Kidney Disease N Heart Problems N Hospitalizations Y Gallstones N Kidney or Bladder Problems N Goiter N Acne N Eating Disorder N Moses's Esophagus N Hypertriglyceridemia N Constipation N Embolism N Vitamin B12 Deficiency N Deviated Septum N AIDS/HIV N Myocardial Infarction N Asthma N Mitral Valve Disorders N Vertigo N Hepatitis N Thyroid Cancer N Neuropathy N History of DVT N Herniated Disc N Chicken Pox Y Von Willebrands Disease N Thrombophilias N Breast Cancer N Hernia N Plantar Fasciitis N Hypothyroidism N Lung Disease N Defects or Inherited Disease N Breast Problem N Ovarian Cyst Y Anesthesia Complications N Testosterone Deficiency N Interstitial Cystitis N Congenital Anomalies N Hypoglycemia N Blood clot N Vitamin D Deficiency N Cellulitis N Endometriosis N Bladder or Kidney Problems N Fracture N Panic Disorder N Schizophrenia N Concussion N Spina Bifida N Allergies/Hayfever Y Osteoarthritis N Parkinson's Disease N Disc Protrusion N STI N Esophagitis N Angina N Thyroid Problems N GI Problems N ADD/ADHD N Anemia N Multiple Sclerosis N Abnormal PAP N Lumbago N Mental Illness Y Psychiatric Illness N Diabetes Y Ovarian Cancer N Degenerative Disc Disease Y Seizures/Epilepsy N Hyperlipidemia N Syncope N Insomnia N Eczema N Abuse/Domestic Violence N Attention Deficient Disorder N Diverticulitis Y Dementia N Ulcerative colitis N Cerebrovascular Disease N Depression N Guillain-[place] N Sleep Apnea N Aneurysm N Bronchitis N Heart Disease N Hypertension Y Pre-Eclampsia N Suicidal Ideation N Osteoporosis Y Gynecological History Statement/Question Response Abnormal Pap N Date of Last Mammogram 11/21/2024 Date of LMP 01/21/2024 Post Menopausal Bleeding N STIs/STDs N HPV Vaccine N Current Control Method BCPs Age at Menarche 13 Age at First Child 25 Last Annual Exam/Provider 12/17/24 with DT Last Lipids 04/21/2024 Date of Last Colonoscopy Most Recent Bone Density Sexually Active? Y Menses Monthly N Date of Last Pap Smear 12/17/2024 Sexual Problems? N LMP Approximate Desired Control Method BCPs Hormone Replacement Therapy N Obstetrics History GPAL:G 2 P 1 0 1 1 Type Value Multiple Births 0 Full Term 1 Induced 0 Spontaneous 1 Premature 0 Living 1 Ectopics 0 Total 2 Immunizations Vaccine Type Date Status Note Provider Name and Address Organization Details Recorded Time zoster recombinant 025 completed Not Available [facility] 03/26/2025 10:44:24 Tdap 025 completed Not Available [facility] 03/26/2025 10:44:24 Pneumococcal conjugate PCV20, polysaccharide DHU102 conjugate, adjuvant, PF 025 completed Not Available [facility] 03/26/2025 10:44:24 Influenza, split virus, quadrivalent, preservative 023 cancelled patient objection Trina Perez APRN [address], [place], [address], [place] - [facility] 08/22/2023 21:30:04 Influenza, split virus, quadrivalent, preservative 019 completed Not Available [facility] 11/12/2023 14:27:58 Influenza, split virus, quadrivalent, preservative 020 completed Not Available [facility] 11/12/2023 14:27:58 COVID-19, mRNA, LNP-S, PF, 30 mcg/0.3 mL dose 021 completed Delores Zornes null, [place] - [facility] 10/31/2022 11:15:13 COVID-19, mRNA, LNP-S, PF, 30 mcg/0.3 mL dose 021 completed Delores Zornes null, [place] - [facility] 10/31/2022 11:15:13 Tdap 013 completed Delores Zornes null, [place] - [facility] 10/31/2022 11:15:13 Past Encounters Encounter ID Performer Location Encounter Start Date Encounter Closed Date Diagnosis/Indication Diagnosis SNOMED-CT Code Diagnosis ICD10 Code Diagnosis Note [id number] JI Lozano [facility] [address] [place] [address] 02/26/2025 08:14:29 02/26/2025 08:39:50 Degeneration of lumbar intervertebral disc 37906815 M51.369 Chronic-st ableEKASPE R 02/26/25 (appropria te)Date of lastUDS: 11/25/24CS A: 04/21/24Re fill: 02/03/25Ti me med was taken: 02/25/25 [id number] JI Lozano [facility] [address] [facility] [place] [address] 03/13/2025 11:29:01 03/13/2025 11:59:05 Peripheral neuropathic pain 053063347 M79.2 chronic Type 2 bianka betes mellitus [id number] E11.9 Patient reports taking metformin 500 mg daily for diabetesA1 C today is 6.2Neurolo gy recommende d starting GLP1/2 for weight loss [id number] JI Lozano [facility] [address] [place] [address] 03/26/2025 10:43:37 03/26/2025 11:26:55 Preprocedural examination done [id number] 31366 Z01.818 Pre-operat dusty testing reviewed (UA, CBC, PT/INR. PTT)Vital signs are stableACS NSQIP surgical risk calculator puts patient at above average risk of surgical complicati ons. Patient reports they are planning to admit her for 2-3 days after surgeryBas ed on the informatio n provided and the patient's status at this visit there are no obvious contraindi cations to the proposed procedure. Health Concerns Section Related Observation LastModified by Organization Detai ls LastModified Time None Recorded Concern Status LastModified by Organization Details LastModified Time None Recorded Payers Encounter Date Sequence Insurance Name Policy Number Policy Escobedo Covered Member ID Escobedo Member ID Guarantor Name 03/26/2025 1 [employer] (MEDICARE REPLACEMENT/ ADVANTAGE - PPO) Tesha [facility] [id number] Tesha [facility] Notes Date Note Type Note Provider Name and Address Organization Details Recorded Time 03/26/2025 text/html Tesha is in the office today for pre-op clearance.She is scheduled to have L5-S1 Transforaminal Interbody Lumbar fusion with Navigation and T10-S1 and Pelvic fusion.She has had her pre-op testing done. The results are in review to the provider. Cara Smith APRN [address], [place], [address], [place] - [facility] 03/26/2025 11:35:22 OBGyn Episode No OBEpisode recorded.
--- OUTSIDE RECORDS SUMMARY | 2025-04-13 07:18 | XMS_ITS | Continuity of Care Document ---
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 Plan of Treatment Reminders Order Date Submit Date Provider Last Modified By Organization Details Last Modified Time Details Appointments None recorded. Lab None recorded. Referral None recorded. Procedures None recorded. Surgeries None recorded. Imaging None recorded. Medication Orders gabapentin 400 mg capsule 2024 025 [facility], [address] [place], [address], 08:36:52 Patient TargetsNo targets recorded. Patient Instructions Encounter Date Encounter Id Patient Instructions Last Modified By Organization Details Last Modified Time 02/26/2025 [id number] Follow up as needed. The patient will report any new or worsening symptoms. The patient will return to clinic if new or worsening symptoms are noted, or if if the symptoms do not resolve. If marked worsening of the symptoms is noted the patient will go to the emergency department of their choice. [email or web address] Not available 02/26/2025 08:33:34 Reason for Referral None Reported. Problems Name Problem SNOMED Code Status Onset Date Resolution Date Notes Provider Name and Address Organization Details Recorded Time Morbid obesity 630653733 Completed 201702/13/2024 Jhony Amin APRN [address], [place], [address] , [facility] 14:26:21 Lesion of liver 418420747 Active 2017 2.5cm, low density, right lobe Danuta Turner null, [place] - [facility] 0 10:41:41 Prediabe ana 312163902 Active 2018 Jhony Amin APRN [address], [place], [address] , [place] [facility] 4 14:26:16 Degenera tion of lumbar interver tebral disc 87791925 Active 2018 s/p spinal fusion 2019 Jhony Amin APRN [address], [place], [address] , [place] [facility] 1 13:19:23 Rheumato id arthriti s 84286006 Active 2018 Danutaneetu Turner null, [place] - [facility] 0 10:41:41 Hyperten sive disorder 51515266 Active 2020 Jhony Amin APRN [address], [place], [address] , [place] [facility] 4 14:26:15 Mild depressi on 612011177 Active 2020 Jhony Amin APRN [address], [place], [address] , [place] [facility] 4 14:26:15 Essentia l hyperten mary jane 01347873 Completed 201210/24/2016 Keisha Olmstead APRN [address], [place], [address] , [place] [facility] 7 17:32:04 Examinat ion of blood pressure Completed 202002/26/2023 Jhony Amin APRN [address], [place], [address] , [place] [facility] 3 23:56:44 Fluid level behind tympanic membrane Completed 202002/26/2023 Jhony Amin APRN [address], [place], [address] , [place] [facility] 3 23:56:30 Body mass index 40+ - severely obese 605839604 Active 2020 Jhony Brennan, [employer] COORDINATOR [address], [place], [address] , [place] [facility] 4 14:26:16 Benign paroxysm al position al vertigo 082397709 Completed 202102/13/2024 Jhony AminSTACEYN [address], [place], [address] , [place] [facility] 4 14:26:27 Varicose veins of lower extremit y 75256965 Active 2021 Jhony STACEY AminN [address], [place], [address] , [place] [facility] 4 14:26:16 Anxiety 43976121 Active 2021 Jhony JI Amin [address], [place], [address] , [place] [facility] 4 14:26:16 Spinal stenosis in cervical region 32243169 Active 2022 cervical spinal fusion 12/2023, [facility], Dr. Twila Amin, [employer] COORDINATOR [address], [place], [address] , [place] [facility] 4 14:26:16 Gastroes ophageal reflux disease 201735930 Active Jhonyjessica Amin APRN [address], [place], [address] , [place] [facility] 4 14:26:16 Fibromya lgia 092048469 Active Jhonyjessica Amin APRN [address], [place], [address] , [place] [facility] 4 14:26:16 Asthma 409093923 Active Delores Foster [facility], [place] - [facility] 3 13:52:13 Inflamma tion of sacroili ac joint 31865736 Completed 202302/13/2024 Jhonyjessica Amin APRN [address], [place], [address] , [place] [facility] 4 14:21:29 Spinal stenosis of thoracic region 44345631 Active 2023 thoracic fusion, 05/2022, Dr. Twila Amin, [employer] COORDINATOR [address], [place], [address] , [place] [facility] 4 14:26:15 History of spinal fusion 33068045121 107 Active 2023 lumbar 2019, thoracic 2021, cervical 2023, [facility], Dr. Mattson , [facility] Jhony Amin, HEAD START COORDINATOR [address], [place], [address] , [place] [facility] 4 14:27:20 Acute bilatera l otitis media with effusion 66520648706 07 Active 2023 Merly Uribe, [employer] COORDINATOR [address], [place], [address] , [place] [facility] 4 14:24:16 Chronic serous otitis media 91116607 Active 2023 Merly Uribe, [employer] COORDINATOR [address], [place], [address] , [place] [facility] 4 14:28:48 Urgent desire to urinate 78722001 Completed 202312/17/2024 Trina Perez, [employer] COORDINATOR [address], [place], [address] , [place] [facility] 5 20:50:43 History of calculus of kidney 507318925 Active 2023 Trina Perez, [employer] COORDINATOR [address], [place], [address] , [place] [facility] 4 15:07:20 Upper respirat ory infectio n 97573606 Active 2023 Cara Smith, [employer] COORDINATOR [address], [place], [address] , [place] [facility] 4 15:51:12 Acute otitis externa 21740374 Active 2023 Cara Smith, [employer] COORDINATOR [address], [place], [address] , [place] [facility] 4 16:27:54 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 2023 Cara Smith, [employer] COORDINATOR [address], [place], [address] , [place] [facility] 4 16:00:23 Costal chondrit is 34265475 Active 2023 Cara Smith, [employer] COORDINATOR [address], [place], [address] , [place] [facility] 4 16:00:43 Pneumoni a 750060955 Active 2023 Cara Luis, [employer] START COORDINATOR [address], [place], [address] , [place] [facility] 4 10:09:03 Low back pain co-occur rent with neuralgi a of right sciatic nerve 09422353146 9105 Active 2024 Cara Smith, [employer] COORDINATOR [address], [place], [address] , [place] [facility] 5 13:56:53 Peripher al demyelin ating neuropat hy 12199123 Active 2024 Cara STACEY SmithN [address], [place], [place], [address] , [place] [facility] 5 10:09:41 Inconclu sive mammogra phy finding 17837677350 9104 Active 2024 Faint nodular opacity right breast MLO view. Recommen d exaggera romeo CC view to get more medial breast tissue with marking of any moles or palpable cutaneou s lesions. Sonograp hy will also be necessar misty Perez, [employer] START COORDINATOR [address], [place], [address] , [place] [facility] 5 11:04:54 Seasonal allergy 775402137 Active 2024 Cara Luis [employer] COORDINATOR [address], [place], [address] , [place] [facility] 5 16:35:36 Unrefres hed by sleep 507478911 Active 2024 Caramisty Smith [employer] COORDINATOR [address], [place], [address] , [place] [facility] 5 16:20:12 Peripher al neuropat hic pain 509722758 Active 2024 Caar Smith APRN [address], [place], [address] , [place] [facility] 5 11:51:27 Type 2 diabetes mellitus 56174152 Active 2024 Cara Luis, JI [address], [place], [address] , [place] [facility] 5 12:37:11 Preproce dural examinat ion done 47632125434 4104 Active 2024 Cara Luis, JI [address], [place], [address] , [place] [facility] 5 11:35:08 Problem Notes None recorded. Procedures Surgical History Date Name Laterality Status Provider Name and Address Organization Details Recorded Time 12/18/19 25 Date of Last Pap Smear completed Danuta Turner [place] - [facility] 12/19/2024 16:29:11 11/21/19 25 Date of Last Mammogram completed Trina Perez APRN [address], [place], [address], [place] [facility] 11/24/2024 11:05:51 05/31/20 23 Back Surgery completed Trina Perez APRN [address], [place], [address], [place] [facility] 08/22/2023 11:32:26 08/29/20 22 Skin Tag Removal completed Jhony Amin APRN [address], [place], [address], [place] [facility] 08/29/2022 22:26:23 09/12/20 19 I&D completed Zeb Smith MD [address], [place], [address], [place] [facility] 09/12/2019 16:07:05 07/28/20 19 Systolic B/P less than 130 mm Hg completed Jessy Orosco [place] - [facility] 07/28/2019 10:17:06 07/28/20 19 Diastolic B/P 80-89 mm Hg completed Jessy [place] [facility] 07/28/2019 10:17:03 08/21/20 18 Systolic B/P less than 130 mm Hg completed Jessy [place] [facility] 11/08/2018 10:40:08/21/20 18 Diastolic B/P 80-89 mm Hg completed Jessy [place]o [place] [facility] 11/08/2018 10:40:24 08/20/19 96 Caesarean Section completed Trina Perez APRN [address], [place], [address], [place] [facility] 08/22/2023 11:32:26 04/15/19 95 Dilation and Curettage, sharp completed Trina Perez APRN [address], [place], [address], [place] [facility] 08/22/2023 11:32:26 10/08/18 94 dental surgery completed Trina Perez APRN [address], [place], [address], [place] [facility] 08/22/2023 11:32:26 10/08/18 92 Tonsillectomy completed Trina Perez APRN [address], [place], [address], [place] [facility] 08/22/2023 11:32:26 primary posterior fusion of thoracic spine completed Jhony Amin APRN [address], [place], [address], [place] [facility] 08/29/2022 22:05:30 lumbar spinal fusion completed Jhony Amin APRN [address], [place], [address], [place] [facility] 08/29/2022 22:05:[address] [facility] [place] [facility] 10/24/2016 17:06:06 Tonsillectomy completed Fany Andrus [place] - [facility] 10/24/2016 17:07:56 Anal fistula repair completed Fany Alireza [place] - [facility] 10/24/2016 17:07:04 fusion of joint of cervical spine by anterior approach for deformity of cervical spine completed Jhony Amin APRN [address], [place], [address], [place] [facility] 01/21/2024 18:20:20 Nl removal calculus completed Fany Lay [place] - [facility] 10/24/2016 17:07:44 Imaging Results None recorded. Procedure Notes None recorded. Medical Equipment None Reported. Allergies Allergen ID Allergen Name Allergen Category Reaction Reaction Severity Criticality Documentation Date Start Date Code Code System Note Provider Name and Address Organization Details Recorded Time 138333 Substance with sulfonami de structure and antibacte rial mechanism of action (substanc e) medicatio n rash Not available Not available 09/26/2019 20656 8003 SNOMED Mora Beni null, [place] - [facility] 9 13:30:15 994366 metoprolo l Not available facial swelling itching severe severe high 07/03/2023 6918 RxNorm Gladis Tapia null, [place] - [facility] 3 15:05:52 912560 methotrex ate medicatio n Not available Not available Not available 07/07/2024 6851 RxNorm lungs got worse . Merly Uribe , [employer] COORDINATOR [address], [place], [address], [place] - [facility] 4 13:58:42 59947 lisinopri l medicatio n Not available Not available Not available 07/14/20162009 30658 RxNorm Danuta Turner null, [place] - [facility] 0 10:26:54 85547 lisinopri l medicatio n respirato ry distress severe Not available 09/26/2016 41180 RxNorm Jacob jay null, [place] - [facility] 6 08:45:55 Medications Name Sig Start Date Stop Date Status Note LastModified by Organization Details LastModified Time Prescript ion - Renewal 11/30 completed [facility] Not Available Not Available Not Available [...] Available Not Available neomycin/ polymyxin /hydrocor tisone 3.5-47810 -1 soln 10/24 completed Not Available Not [...] Available Not Available neomycin/ polymyxin /hydrocor tisone 3.5-41437 -1 susp 09/15 completed Not Available Not [...] on: 03/29/20 15 3:25PM;D iscontin ued Status: Manoji nued on: 05/10/20 15 1:40PM;U ser: kb [...] Disconti nued on: 04/11/20 16 2:52PM;U ser: adilenebe megan;Est. Completi on: 01/28/20 16;Pharm acyVerif ied: 01/18/20 16 4:36PM Not Available Not [...] Disconti nued on: 09/05/20 11 10:04AM; User: [email or web address]; Est. Completi on: 06/16/20 11;Print ed: 06/09/20 11 Not [...] Disconti nued on: 01/13/20 16 3:41PM;U ser: kb guzman;Est. Completi on: 01/12/20 16;Pharm acyVerif ied: 12/29/19 [...] 14 9:44AM;U ser: kb guzman;Est. Completi on: 02/12/20 14;Pharm acyVerif ied: 02/05/20 [...] Disconti nued on: 06/16/20 14 9:44AM;U ser: janell;Es t. Completi on: 12/21/19 14;Pharm acyVerif ied: [...] Disconti nued on: 05/27/20 10 10:44AM; User: Day Cobb on: 10/29/19 10;Print ed: 10/19/19 10 Not [...] completed Not Available Not Available Not Available norethielvis ambreen (contrace ptive) 0.35 mg tablet Take 1 [...] Disconti nued on: 09/05/20 11 10:04AM; User: Zafar tAurelio Completi on: 07/10/20 11;Indic ation: Hyperten mary [...] Disconti nued on: 04/11/20 11 1:11PM;U ser: keefk;Es t. Completi on: 11/16/19 11;Indic ation: Cough [...] nued on: 02/15/20 13 2:00PM;U ser: kb ryarron;Est. Completi on: 06/26/20 12;Indic ation: Cystitis , [...] 13 2:00PM;U ser: markesbe ryh;Est. Completi on: 05/19/20 12;Indic ation: - (-5) Not Available Not Available Not Available hydrochlo rothiazid e Take 1 tablet by oral route once a day for 30 days 06/16 completed hctz Oral;Rec orded Status: Recorded on: 03/19/20 13 9:39AM;D iscontin ued Status: Disconti nued on: 06/16/20 14 9:44AM;U ser: markesbe ryh;Est. Completi on: 07/17/20 13;Indic ation: None [...] Disconti nued on: 11/09/19 11 10:48AM; User: kb gzuman;Est. Completi on: 09/10/20 10;Indic ation: - (-5);Tisha nted: [...] nued on: 04/11/20 16 2:25PM;U ser: kb guzman;Est. Completi on: 05/11/20 16;Indic ation: - (-5) [...] t Available Vitals Date Recorded Body height Respiratory rate Body mass index (BMI) Body weight Body temperature Heart rate Oxygen saturation Oxygen saturation in Arterial blood by Pulse oximetry Provider Name and Address Organization Details Last Updated DateTime 5 163.83 cm 18 /min 47.5 kg/m2 944426. 46 g 98 [degF] 80 /min 95 % 95 % Corinne Rachele [place] - [facility] 5 08:23:22 Social History Question Answer Notes LastModified by Organizat ion Details LastModified Time Tobacco Smoking Status Never Smoker Jacbo Infanteganesh [place], [place] - [facility] 08/22/2016 13:54:15 Do You Have An Advance Directive? No [email or web address] Information not available 07/05/2017 Are You Blind Or Do You Have Difficulty Seeing? No [email or web address] Information not available 08/22/2023 Is Blood Transfusion Acceptable In An Emergency? Yes Information not available 12/17/2017 What Is Your Level Of Caffeine Consumption? Occasional Information not available 12/17/2017 How Much Tobacco Do You Chew? None Information not available 10/24/2016 Are You Deaf Or Do You Have Serious Difficulty Hearing? No [email or web address] Information not available 07/05/2017 What Type Of Diet Are You Following? REGULAR Information not available 10/24/2016 Which Illicit Or Recreational Drugs Have You Used? Never Information not available 10/24/2016 What Is The Highest Grade Or Level Of School You Have Completed Or The Highest Degree You Have Received? [id number] [email or web address] Information not available 05/06/2018 How Many Days Of Moderate To Strenuous Exercise, Like A Brisk Walk, Did You Do In The Last 7 Days? 1 [email or web address] Information not available 08/22/2023 On Those Days That You Engage In Moderate To Strenuous Exercise, How Many Minutes, On Average, Do You Exercise? 1 [email or web address] Information not available 08/22/2023 How Hard Is It For You To Pay For The Very Basics Like Food, Housing, Medical Care, And Heating? Not Very Hard [email or web address] Information not available 07/07/2024 How Many Years Have You Used Illicit Or Recreational Drugs? 0 [email or web address] Information not available 12/17/2024 Live Alone Or With Others? With Others [email or web address] Information not available 08/22/2023 Last Menstrual Period? 01/21/2024 [email or web address] Information not available 07/17/2024 What Was The Date Of Your Most Recent Tobacco Screening? 12/17/2024 [email or web address] Information not available 12/17/2024 How Many Children Do You Have? 1 Information not available 07/05/2017 Performs Monthly Self-breast Exam? Yes [email or web address] Information no t available 08/22/2023 Do You Use Protection During Sex? Always [email or web address] Information not available 08/22/2023 Do You Use Protection Against STDs? Always [email or web address] Information not available 08/22/2023 What Is Your Relationship Status? Information not available 10/24/2016 Do You Use Your Seat Belt Or Car Seat Routinely? Yes [email or web address] Information not available 08/22/2023 Seat Belts Used Routinely Yes [email or web address] Information not available 08/22/2023 Are You Sexually Active? Yes Information not available 10/24/2016 Smoke Alarm In Home Yes [email or web address] Information not available 08/22/2023 Do You Have Smoke And Carbon Monoxide Detectors In Your Home? Yes [email or web address] Information not available 08/22/2023 Are You Passively Exposed To Smoke? No [email or web address] Information no t available 08/22/2023 How Much Tobacco Do You Smoke? No [email or web address] Information not available 08/22/2023 General Stress Level Medium [email or web address] Information not available 08/22/2023 Do You Use Sunscreen Routinely? Yes Information not available 07/05/2017 Has Tobacco Cessation Counseling Been Provided? Yes [email or web address] Information not available 11/12/2023 On What Date Was Tobacco Cessation Counseling Provided? 12/17/2024 Information not available 12/17/2024 How Many Years Have You Smoked Tobacco? 0 [email or web address] Information not available 08/22/2016 Do You Have Difficulty Walking Or Climbing Stairs? No [email or web address] Information not available 08/22/2023 What Contraceptive Method Was Reported At Start Of This Visit? Progestin Only Contraceptive Pills [email or web address] Information not available 12/17/2024 What Contraceptive Method Was Reported At End Of This Visit? Progestin Only Contraceptive Pills [email or web address] Information not available 08/22/2023 Do You Want To Talk About Contraception Or Prevention During Your Visit Today? No - I Am Already Using Contraception [email or web address] Information not available 08/22/2023 How Was The Contraceptive Method Provided? Prescription [email or web address] Information not available 08/22/2023 Do You Have Any Future Plans To Get ? No, I Don't Want To Become Information not available 08/22/2023 Which Type Of Protection Is Used? Condom Information not available 08/22/2023 Sex: Female Functional Status Question Answer Note LastModified by Organizat ion Details LastModified Time Do you or have you ever used smokeless tobacco? Never used smokeless tobacco [email or web address] Information not available 03/03/2020 Are you currently employed? No Information not available 08/22/2023 Urinary incontinence assessment performed? No [email or web address] Information not available 08/22/2023 Are you able to care for yourself? Yes [email or web address] Information not available 12/17/2024 Do you have difficulty dressing or bathing? No [email or web address] Information not available 08/22/2023 Do you or have you ever used e-cigarettes or vape? Never used electronic cigarettes [email or web address] Information not available 03/03/2020 What is your exercise level? Occasional [email or web address] Information not available 12/17/2024 Do you use any illicit or recreational drugs? No [email or web address] Information not available 01/27/2022 Do you or have you ever used any other forms of tobacco or nicotine? No Information not available 08/22/2023 What is your level of alcohol consumption? None Information not available 10/24/2016 What is your status? Not [email or web address] Information no t available 08/22/2023 Are you able to walk? YESWOREST [email or web address] Information not available 08/22/2023 Do you have difficulty doing errands alone? No [email or web address] Information not available 08/22/2023 Mental Status Question Answer Note LastModified by Organizat ion Details LastModified Time Do you feel stressed (tense, restless, nervous, or anxious, or unable to sleep at night)? [id number] [email or web address] Information not available 05/06/2018 Do you have difficulty concentrating, remembering or making decisions? No [email or web address] Information no t available 08/22/2023 Family History [...] Malignant neoplasm of lung deceas ed 12/2019 [email or web address] Not available 03/03/2020 17:31:42 Father Aortic aneurysm [email or web address] Not available 2024 10:43:39 Father Hypercholest erolemia [email or web address] Not available 2022 11:32:45 Father Hypertensive disorder [email or web address] Not available 2022 11:32:45 Father Dementia Not availabl e 08/22/2023 11:32:45 Father Heart disease 73 83 [email or web address] Not available 2022 11:32:45 Father Blood coagulation disorder [email or web address] Not available 2022 11:32:45 Father Diabetes mellitus [email or web address] Not available 2022 11:32:45 Father Arthritis Not availab le 12/17/2024 13:23:18 Paternal Grandmother Family history of Myocardial infarction [email or web address] Not available 03/26 10:43:39 Mother Family history of Alzheimer's disease [email or web address] Not available 2024 10:43:39 Mother Dementia [email or web address] Not availabl e 12/17/2024 13:23:18 Mother Alzheimer's disease [email or web address] Not available 2024 10:43:39 Mother Cerebrovascu lar accident [email or web address] Not available 11:32:45 Mother Arthritis [email or web address] Not availab le 08/22/2023 11:32:45 Brother Arthritis [email or web address] Not availa ble 12/17/2024 13:23:18 Brother Hypertensive disorder [email or web address] Not available 2022 11:32:45 Brother Obesity [email or web address] Not availabl e 08/22/2023 11:32:45 Brother Chronic inflammatory demyelinatin g polyradiculo neuropathy 63 [email or web address] Not available 03/26 10:43:39 Medical History Condition Response Pancreatitis N Other N Atrial Fibrillation N congenital heart disease N Kidney Stones Y Blood Diseases N Hyperthyroidism N Rheumatoid arthritis N Blood Transfusion N Erectile Dysfunction N amputation N Skin Lesions N Depression Y Pneumonia N Incontinence N Murmur N Edema N Alzheimer's Disease N Migraine Headaches N Tobacco Abuse N Anxiety Disorder Y Muscle, Joint, or Bone Problems Y Hemorrhoids N Obesity Y Vision or Eye Problems Y Restless Leg Syndrome N Arthritis Y Polyps N Infertility N Carpal Tunnel N [...] Cancer N Hernia N Plantar Fasciitis N Lung Disease N Hypothyroidism N Defects or Inherited Disease N Breast Problem N Ovarian Cyst Y Anesthesia Complications N Testosterone Deficiency N Interstitial Cystitis N Congenital Anomalies N Hypoglycemia N Blood clot N Vitamin D Deficiency N Cellulitis N Endometriosis N Fracture N Bladder or Kidney Problems N Schizophrenia N Panic Disorder N Concussion N Spina Bifida N Allergies/Hayfever Y Osteoarthritis N Parkinson's Disease N Disc Protrusion N STI N Esophagitis N Angina N Thyroid Problems N GI Problems N ADD/ADHD N Anemia N Multiple Sclerosis N Abnormal PAP N Lumbago N Mental Illness Y Psychiatric Illness N Ovarian Cancer N Diabetes Y Degenerative Disc Disease Y Seizures/Epilepsy N Syncope N Insomnia N Hyperlipidemia N Eczema N Diverticulitis Y Dementia N Attention Deficient Disorder N Abuse/Domestic Violence N Ulcerative colitis N Cerebrovascular Disease N Depression N Guillain-Mesa N Sleep Apnea N Aneurysm N Heart Disease N Bronchitis N Suicidal Ideation N Pre-Eclampsia N Hypertension Y Osteoporosis Y Gynecological History Statement/Question Response Abnormal [...] Time zoster recombinant 025 completed Not Available [facility] 03/26/2025 10:44:24 Tdap 025 completed Not Available [facility] 03/26/2025 10:44:24 Pneumococcal conjugate PCV20, polysaccharide UCG444 conjugate, adjuvant, PF 025 completed Not Available [facility] 03/26/2025 10:44:24 Influenza, split virus, quadrivalent, preservative 023 cancelled patient objection Trina Perez APRN [address], [place], [address], [place] [facility] 08/22/2023 21:30:04 Influenza, split virus, quadrivalent, preservative 019 completed Not Available [facility] 11/12/2023 14:27:58 Influenza, split virus, quadrivalent, preservative 020 completed Not Available [facility] 11/12/2023 14:27:58 COVID-19, mRNA, LNP-S, PF, 30 [...] SNOMED-CT Code Diagnosis ICD10 Code Diagnosis Note [id number] JI Lozano [facility] Adam MURGU[facility] [place] [address] 01/27/2025 13:41:06 01/27/2025 14:31:31 Degeneration of lumbar intervertebral disc [id number] M51.369 Chronic-st ableEKASPE R 01/27/25Dat e of last:UDS:0 10/20/24CSA : 04/21/24Re fill: 01/15/25Ti me med was taken: 01/28/25Inc reasing 600mg nightly dose to 800mg nightly, daily dose remaining at 400mg. [id number] JI Lozano [place] [address] Anshu MURGU[facility] [place] [address] 02/26/2025 08:14:29 02/26/2025 08:39:50 Degeneration of lumbar intervertebral disc [id number] M51.369 Chronic-st ableEKASPE R 02/26/25 (appropria te)Date of lastUDS: 11/25/24CS A: 04/21/24Re fill: 02/03/25Ti me med was taken: 02/25/25 Health Concerns Section Related Observation LastModified by Organization Detai ls LastModified Time None Recorded Concern Status LastModified by Organization Details LastModified Time None Recorded Payers Encounter Date Sequence Insurance Name Policy Number Policy Escobedo Covered Member ID Escobedo Member ID Guarantor Name 02/26/2025 1 [employer] (MEDICARE REPLACEMENT/ ADVANTAGE - PPO) Tesha Espinal [id number] Tesha Espinal Notes Date Note Type Note Provider Name and Address Organization Details Recorded Time 02/26/2025 text/html Tesha is in the office today to receive refills on gabapentin. Date of lastUDS: 11/25/24CSA: 04/21/24Refill: 02/03/25Time med was taken: 02/25/25 Cara Smith, JI [address], [place], [address], [place] - [facility] 02/26/2025 08:39:53 OBGyn Episode No OBEpisode recorded.
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
--- OUTSIDE RECORDS SUMMARY | 2025-04-13 07:19 | XMS_ITS | Continuity of Care Document ---
Author Organization [facility] Address [address] [place] [address] Care Team Providers Care Joint Setter Name Role Phone JHONY AMIN Family Medicine Unavailable HUSSEIN AHUJA Referring Provider Assessment No assessment recorded. Plan of Treatment Reminders Order Date Submit Date Provider Last Modified By Organization Details Last Modified Time Details Appointments None recorded. Lab HbA1c (hemoglobin A1c), blood [address] [facility] [place], [address] [place] [address] Rd, [place], [address], 11:55:41 Referral None recorded. Procedures None recorded. Surgeries None recorded. Imaging None recorded. Medication Orders Mounjaro 2.5 mg/0.5 mL subcutaneou s pen injector 2024 025 [facility], [address] [place], [address], 11:55:46 duloxetine 30 mg capsule,del ayed release 2024 025 [facility], [address] [place], [address], 11:55:47 Patient TargetsNo targets recorded. Patient Instructions Encounter Date Encounter Id Patient Instructions Last Modified By Organization Details Last Modified Time 03/13/2025 [id number] Follow up as needed. The patient will report any new or worsening symptoms. The patient will return to clinic if new or worsening symptoms are noted, or if if the symptoms do not resolve. If marked worsening of the symptoms is noted the patient will go to the emergency department of their choice. [email or web address] Not available 03/13/2025 11:52:50 Reason for Referral None Reported. Results Created Date Observation Date Name Description Value Unit Range Abnormal Flag Note LastModifiedBy Organization Detail LastModifiedTime 03/13/20 25 03/13/2025 HbA1c (hemo globi n A1c), blood HbA1C 6.2 % Not Available [facility] [address], [place], [address], 03/13/2025 11:53:20 Result Notes None recorded. Problems Name Problem SNOMED Code Status Onset Date Resolution Date Notes Provider Name and Address Organization Details Recorded Time Morbid obesity 816783927 Completed 201702/13/2024 Jhony Amin APRN [address], [place], [address] , [place] - [facility] 4 14:26:21 Lesion of liver 609132837 Active 2017 2.5cm, low density, right lobe Danuta mitchell, [place] - [facility] 0 10:41:41 Prediabe ana 370263798 Active 2018 Jhony Amin APRN [address], [place], [address] , [place] - [facility] 4 14:26:16 Degenera tion of lumbar interver tebral disc 58073304 Active 2018 s/p spinal fusion 2019 Jhony Amin APRN [address], [place], [address] , [place] - [facility] 1 13:19:23 Rheumato id arthriti s 70416772 Active 2018 Danuta mitchell [place] - [facility] 0 10:41:41 Hyperten sive disorder 69293323 Active 2020 Jhony Amin APRN [address], [place], [address] , [place] - [facility] 4 14:26:15 Mild depressi on 274948087 Active 2020 Jhony Amin APRN [address], [place], [address] , [place] [facility] 4 14:26:15 Essentia l hyperten mary jane 27076019 Completed 201210/24/2016 Keisha JI Olmstead [address], [place], [address] , [place] [facility] 7 17:32:04 Examinat ion of blood pressure Completed 202002/26/2023 Jhony Amin APRN [address], [place], [address] , [place] [facility] 3 23:56:44 Fluid level behind tympanic membrane Completed 202002/26/2023 Jhony Amin APRN [address], [place], [address] , [place] [facility] 3 23:56:30 Body mass index 40+ - severely obese 268834306 Active 2020 Jhony Amin APRN [address], [place], [address] , [place] [facility] 4 14:26:16 Benign paroxysm al position al vertigo 689216299 Completed 202102/13/2024 Jhony Amin APRN [address], [place], [address] , [place] [facility] 4 14:26:27 Varicose veins of lower extremit y 67562765 Active 2021 Jhony Amin APRN [address], [place], [address] , [place] [facility] 4 14:26:16 Anxiety 06080335 Active 2021 Jhony Amin APRN [address], [place], [address] , [place] [facility] 4 14:26:16 Spinal stenosis in cervical region 30241979 Active 2022 cervical spinal fusion 12/2023, [facility], Dr. Twila Amin APRN [address], [place], [address] , [place] [facility] 4 14:26:16 Gastroes ophageal reflux disease 141915943 Active Jhony Brennan, [employer] [address], [place], [address] , [place] [facility] 4 14:26:16 Fibromya lgia 060205982 Active Jhonyjessica Amin, SE[employer] [address], [place], [address] , [place] [facility] 4 14:26:16 Asthma 452499794 Active Delores Cristian [facility], [place] - [facility] 3 13:52:13 Inflamma tion of sacroili ac joint 41232845 Completed 202302/13/2024 Jhony Amin, [employer] [address], [place], [address] , [place] [facility] 4 14:21:29 Spinal stenosis of thoracic region 02873012 Active 2023 thoracic fusion, 05/2022, Dr. Twila Amin, SE[employer] [address], [place], [address] , [place] [facility] 4 14:26:15 History of spinal fusion 12407392857 107 Active 2023 lumbar 2020, thoracic 2021, cervical 2023, [facility], Dr. Mattson , [facility] Jhony Amin, SE[employer] [address], [place], [address] , [place] - [facility] 4 14:27:20 Acute bilatera l otitis media with effusion 49162044219 07 Active 2023 Merly Uribe, SE[employer] [address], [place], [address] , [place] [facility] 4 14:24:16 Chronic serous otitis media 82996416 Active 2023 Merly Uribe, SE[employer] [address], [place], [address] , [place] [facility] 4 14:28:48 Urgent desire to urinate 53408093 Completed 202312/17/2024 Trina Perez, SE[employer] [address], [place], [address] , [place] [facility] 5 20:50:43 History of calculus of kidney 836016938 Active 2023 Trina Perez, [employer] [address], [place], [address] , [place] [facility] 4 15:07:20 Upper respirat ory infectio n 45051036 Active 2023 Cara Smith APRN [address], [place], [address] , [place] [facility] 4 15:51:12 Acute otitis externa 94925103 Active 2023 Cara Smith APRN [address], [place], [address] , [place] [facility] 4 16:27:54 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 2023 Cara Smith APRN [address], [place], [address] , [place] [facility] 4 16:00:23 Costal chondrit is 64397170 Active 2023 Cara Smith APRN [address], [place], [address] , [place] [facility] 4 16:00:43 Pneumoni a 704447576 Active 2023 Cara Smith APRN [address], [place], [address] , [place] [facility] 4 10:09:03 Low back pain co-occur rent with neuralgi a of right sciatic nerve 00401993159 9105 Active 2024 Cara Smith APRN [address], [place], [address] , [place] [facility] 5 13:56:53 Peripher al demyelin ating neuropat hy 08134455 Active 2024 Cara Smith APRN [address], [place], [address] , [place] [facility] 5 10:09:41 Inconclu sive mammogra phy finding 84963909277 9104 Active 2024 Faint nodular opacity right breast MLO view. Recommen d exaggera romeo CC view to get more medial breast tissue with marking of any moles or palpable cutaneou s lesions. Sonograp hy will also be necessar y Trina Perez APRN [address], [place], [address] , [place] [facility] 5 11:04:54 Seasonal allergy 169669090 Active 2024 Cara JI Smith [address], [place], [address] , [place] [facility] 5 16:35:36 Unrefres hed by sleep 728526947 Active 2024 Cara Smith APRN [address], [place], [address] , [place] [facility] 5 16:20:12 Peripher al neuropat hic pain 478069052 Active 2024 Cara JI Smith [address], [place], [address] , [place] [facility] 5 11:51:27 Type 2 diabetes mellitus 51776863 Active 2024 Cara JI Smith [address], [place], [address] , [place] [facility] 5 12:37:11 Preproce dural examinat ion done 32319200206 4104 Active 2024 Cara JI Smith [address], [place], [address] , [place] [facility] 5 11:35:08 Problem Notes None recorded. Procedures Surgical History Date Name Laterality Status Provider Name and Address Organization Details Recorded Time 12/18/19 Date of Last Pap Smear completed Danuta Turner [place] - [facility] 12/19/2024 16:29:11 11/21/19 Date of Last Mammogram completed Trina Perez APRN [address], [place], [address], [place] [facility] 11/24/2024 11:05:51 05/31/20 23 Back Surgery completed Trina Perez APRN [address], [place], [address], [place] [facility] 08/22/2023 11:32:26 08/29/20 22 Skin Tag Removal completed Jhony Amin APRN [address], [place], [address], [place] [facility] 08/29/2022 22:26:23 09/12/20 19 I&D completed Zeb Smith MD [address], [place], [address], [place] - [facility] 09/12/2019 16:07:05 07/28/20 19 Systolic B/P less than 130 mm Hg completed [facility] - [facility] 07/28/2019 10:17:06 07/28/20 19 Diastolic B/P 80-89 mm Hg completed [facility] - [facility] 07/28/2019 10:17:03 08/21/20 18 Systolic B/P less than 130 mm Hg completed [facility] - [facility] 11/08/2018 10:40:19 08/21/20 18 Diastolic B/P 80-89 mm Hg completed [facility] - [facility] 11/08/2018 10:40:24 08/20/19 96 Caesarean Section completed Trina Perez APRN [address], [place], [address], [place] [facility] 08/22/2023 11:32:26 04/15/19 95 Dilation and Curettage, sharp completed Trina Perez APRN [address], [place], [address], [place] [facility] 08/22/2023 11:32:26 10/08/18 94 dental surgery completed Trina Perez APRN [address], [place], [address], [place] [facility] 08/22/2023 11:32:26 10/08/18 92 Tonsillectomy completed Trina Perez APRN [address], [place], [address], [place] [facility] 08/22/2023 11:32:26 primary posterior fusion of thoracic spine completed Jhony Amin APRN [address], [place], [address], [place] [facility] 08/29/2022 22:05:30 lumbar spinal fusion completed Jhony Amin, SE[employer] [address], [place], [address], [place] [facility] 08/29/2022 22:05:57 Caesarean Section completed Jocelyn Guallparus [place] [facility] 10/24/2016 17:06:06 Tonsillectomy completed Fany Alireza [place] [facility] 10/24/2016 17:07:56 Anal fistula repair completed Fany Alireza [place] [facility] 10/24/2016 17:07:04 fusion of joint of cervical spine by anterior approach for deformity of cervical spine completed Jhony Amin, [employer] [address], [place], [address], [place] [facility] 01/21/2024 18:20:20 Nl removal calculus completed Fany Alireza [place] [facility] 10/24/2016 17:07:44 Imaging Results None recorded. Procedure Notes None recorded. Medical Equipment None Reported. Allergies Allergen ID Allergen Name Allergen Category Reaction Reaction Severity Criticality Documentation Date Start Date Code Code System Note Provider Name and Address Organization Details Recorded Time 376735 Substance with sulfonami de structure and antibacte rial mechanism of action (substanc e) medicatio n rash Not available Not available 09/26/2019 63364 8003 SNOMED Mora Tune [facility], [place] - [facility] 9 13:30:15 313525 metoprolo l Not available facial swelling itching severe severe high 07/03/2023 6918 RxNorm Gladis Tapia [place] [facility] 3 15:05:52 002960 methotrex ate medicatio n Not available Not available Not available 07/07/2024 6851 RxNorm lungs got worse . Merly Uribe , [employer] [address], [place], [address], [place] - [facility] 4 13:58:42 63846 lisinopri l medicatio n Not available Not available Not available 07/14/20162009 58473 RxNorm Danuta Turner null, [place] - [facility] 0 10:26:54 97073 lisinopri l medicatio n respirato ry distress severe Not available 09/26/2016 14360 RxNorm KAREN [place] - [facility] 6 08:45:55 Medications Name Sig Start Date Stop Date Status Note LastModified by Organization Details LastModified Time Prescript ion - Renewal 11/30 completed [facility] Not Available Not Available [...] Available Not Available neomycin/ polymyxin /hydrocor tisone 3.5-64330 -1 soln 10/24 completed Not Available Not [...] Available Not Available neomycin/ polymyxin /hydrocor tisone 3.5-77283 -1 susp 09/15 completed Not Available Not [...] Completi on: 08/08/20 15;Pharm acyVerif ied: 05/10/20 3:14PM Not Available Not Available Not Available [...] Disconti nued on: 06/16/20 14 9:44AM;U ser: janell;Denise t. Completi on: 12/21/19 14;Pharm acyVerif ied: [...] Disconti nued on: 04/11/20 16 2:52PM;U ser: [email or web address] ryh;Est. Completi on: 01/28/20 16;Pharm acyVerif ied: 01/18/20 [...] Disconti nued on: 09/05/20 11 10:04AM; User: [email or web address]; Est. Completi on: 06/16/20 11;Print ed: 06/09/20 [...] Miguelangel-Tab 500 mg oral tablet,d elayed release (/EC); Recorded Status: Recorded on: 10/19/19 10 1:23PM;D [...] completed Not Available Not Available Not Available norethind ambreen (contrace ptive) 0.35 mg tablet Take [...] Disconti nued on: 06/24/20 14 3:57PM;U ser: [email or web address] Not Available Not Available Not Available amoxicill [...] nued on: 09/05/20 11 10:04AM; User: Zafar t. Completi on: 07/10/20 11;Indic ation: Hyperten mary jane - (4019 00);Prin romeo: 04/11/20 11 Not Available Not Available [...] markesbe ryh;Est. Completi on: 06/26/20 12;Indic ation: Cystitis , [...] Disconti nued on: 12/29/19 16 3:20PM;U ser: kb guzman;Est. Completi on: 01/12/20 16;Indic ation: - (-5) [...] nued on: 11/09/19 11 10:48AM; User: kb hoffmanEst. Completi on: 09/10/20 10;Indic ation: - (-5);Tisha [...] Disconti nued on: 04/11/20 16 2:25PM;U ser: adilenebe megan;Est. Completi on: 05/11/20 16;Indic ation: - (-5) [...] height Body mass index (BMI) Body weight Respiratory rate Heart rate Body temperature Oxygen saturation Oxygen saturation in Arterial blood by Pulse oximetry Systolic And Diastolic Provider Name and Address Organization Details Last Updated DateTime 5 163.83 cm 46.3 kg/m2 635952. 01 g 17 /min 84 /min 97.7 [degF] 98 % 98 % 128/76 mm[Hg] Angy Walter [place] - [facility] 5 11:34:18 Social History Question Answer Notes LastModified by Organizat ion Details LastModified Time Tobacco Smoking Status Never Smoker Jacob Gamingmisty mitchell [place] - [facility] 08/22/2016 13:54:15 Do You Have An Advance Directive? No [email or web address] Information not available 07/05/2017 Are You Blind Or Do You Have Difficulty Seeing? No [email or web address] Information not available 08/22/2023 Is Blood Transfusion Acceptable In An Emergency? Yes Information not available 12/17/2017 What Is Your Level Of Caffeine Consumption? Occasional Information not available 12/17/2017 How Much Tobacco Do You Chew? None Information not available 10/24/2016 Are You Deaf Or Do You Have Serious Difficulty Hearing? No [email or web address] Information not available 07/05/2017 What Type Of Diet Are You Following? REGULAR Information not available 10/24/2016 Which Illicit Or Recreational Drugs Have You Used? Never Information not available 10/24/2016 What Is The Highest Grade Or Level Of School You Have Completed Or The Highest Degree You Have Received? [id number] [email or web address] Information not available 05/06/2018 How Many Days Of Moderate To Strenuous Exercise, Like A Brisk Walk, Did You Do In The Last 7 Days? 1 [email or web address] Information not available 08/22/2023 On Those Days That You Engage In Moderate To Strenuous Exercise, How Many Minutes, On Average, Do You Exercise? 1 [email or web address] Information not available 08/22/2023 How Hard Is It For You To Pay For The Very Basics Like Food, Housing, Medical Care, And Heating? Not Very Hard [email or web address] Information not available 07/07/2024 How Many Years Have You Used Illicit Or Recreational Drugs? 0 [email or web address] Information not available 12/17/2024 Live Alone Or With Others? With Others [email or web address] Information not available 08/22/2023 Last Menstrual Period? 01/21/2024 [email or web address] Information not available 07/17/2024 What Was The Date Of Your Most Recent Tobacco Screening? 12/17/2024 [email or web address] Information not available 12/17/2024 How Many Children Do You Have? 1 [email or web address] Information not available 07/05/2017 Performs Monthly Self-breast Exam? Yes [email or web address] Information no t available 08/22/2023 Do You Use Protection During Sex? Always [email or web address] Information not available 08/22/2023 Do You Use Protection Against STDs? Always [email or web address] Information not available 08/22/2023 What Is Your Relationship Status? Information not available 10/24/2016 Do You Use Your Seat Belt Or Car Seat Routinely? Yes Information not available 08/22/2023 Seat Belts Used Routinely Yes [email or web address] Information not available 08/22/2023 Are You Sexually Active? Yes Information not available 10/24/2016 Smoke Alarm In Home Yes [email or web address] Information not available 08/22/2023 Do You Have Smoke And Carbon Monoxide Detectors In Your Home? Yes [email or web address] Information not available 08/22/2023 Are You Passively Exposed To Smoke? No [email or web address] Information no t available 08/22/2023 How Much Tobacco Do You Smoke? No [email or web address] Information not available 08/22/2023 General Stress Level Medium [email or web address] Information not available 08/22/2023 Do You Use Sunscreen Routinely? Yes [email or web address] Information not available 07/05/2017 Has Tobacco Cessation Counseling Been Provided? Yes [email or web address] Information not available 11/12/2023 On What Date Was Tobacco Cessation Counseling Provided? 12/17/2024 [email or web address] Information not available 12/17/2024 How Many Years Have You Smoked Tobacco? 0 [email or web address] Information not available 08/22/2016 Do You Have Difficulty Walking Or Climbing Stairs? No [email or web address] Information not available 08/22/2023 What Contraceptive Method Was Reported At Start Of This Visit? Progestin Only Contraceptive Pills [email or web address] Information not available 12/17/2024 What Contraceptive Method Was Reported At End Of This Visit? Progestin Only Contraceptive Pills [email or web address] Information not available 08/22/2023 Do You Want To Talk About Contraception Or Prevention During Your Visit Today? No - I Am Already Using Contraception [email or web address] Information not available 08/22/2023 How Was The Contraceptive Method Provided? Prescription [email or web address] Information not available 08/22/2023 Do You Have Any Future Plans To Get ? No, I Don't Want To Become [email or web address] Information not available 08/22/2023 Which Type Of Protection Is Used? Condom [email or web address] Information not available 08/22/2023 Sex: Female Functional Status Question Answer Note LastModified by Organizat ion Details LastModified Time Do you or have you ever used smokeless tobacco? Never used smokeless tobacco Information not available 03/03/2020 Are you currently employed? No [email or web address] Information not available 08/22/2023 Urinary incontinence assessment performed? No [email or web address] Information not available 08/22/2023 Are you able to care for yourself? Yes Information not available 12/17/2024 Do you have difficulty dressing or bathing? No Information not available 08/22/2023 Do you or have you ever used e-cigarettes or vape? Never used electronic cigarettes [email or web address] Information not available 03/03/2020 What is your exercise level? Occasional [email or web address] Information not available 12/17/2024 Do you use any illicit or recreational drugs? No [email or web address] Information not available 01/27/2022 Do you or have you ever used any other forms of tobacco or nicotine? No [email or web address] Information not available 08/22/2023 What is your level of alcohol consumption? None Information not available 10/24/2016 What is your status? Not [email or web address] Information no t available 08/22/2023 Are you able to walk? YESWOREST [email or web address] Information not available 08/22/2023 Do you have difficulty doing errands alone? No [email or web address] Information not available 08/22/2023 Mental Status Question Answer Note LastModified by Organizat ion Details LastModified Time Do you feel stressed (tense, restless, nervous, or anxious, or unable to sleep at night)? [id number] Information not available 05/06/2018 Do you have difficulty concentrating, remembering or making decisions? No [email or web address] Information no t available 08/22/2023 Family History [...] Malignant neoplasm of lung deceas ed 12/2019 [email or web address] Not available 03/03/2020 17:31:42 Father Aortic aneurysm [email or web address] Not available 2024 10:43:39 Father Hypercholest erolemia Not available 2022 11:32:45 Father Hypertensive disorder [email or web address] Not available 2022 11:32:45 Father Dementia [email or web address] Not availabl e 08/22/2023 11:32:45 Father Heart disease 73 83 [email or web address] Not available 2022 11:32:45 Father Blood coagulation disorder [email or web address] Not available 2022 11:32:45 Father Diabetes mellitus [email or web address] Not available 2022 11:32:45 Father Arthritis [email or web address] Not availab le 12/17/2024 13:23:18 Paternal Grandmother Family history of Myocardial infarction [email or web address] Not available 03/26 10:43:39 Mother Family history of Alzheimer's disease [email or web address] Not available 2024 10:43:39 Mother Dementia [email or web address] Not availabl e 12/17/2024 13:23:18 Mother Alzheimer's disease [email or web address] Not available 2024 10:43:39 Mother Cerebrovascu lar accident [email or web address] Not available 11:32:45 Mother Arthritis Not availab le 08/22/2023 11:32:45 Brother Arthritis [email or web address] Not availa ble 12/17/2024 13:23:18 Brother Hypertensive disorder [email or web address] Not available 2022 11:32:45 Brother Obesity Not availabl e 08/22/2023 11:32:45 Brother Chronic inflammatory demyelinatin g polyradiculo neuropathy 63 [email or web address] Not available 03/26 10:43:39 Medical History Condition Response Pancreatitis N Other N Atrial Fibrillation N congenital heart disease N Blood Diseases N Kidney Stones Y Hyperthyroidism N Rheumatoid arthritis N Blood Transfusion [...] colitis N Cerebrovascular Disease N Depression N Guillain-[place] N Sleep Apnea N Aneurysm N Bronchitis [...] Time zoster recombinant 025 completed Not Available [facility] 03/26/2025 10:44:24 Tdap 025 completed Not Available [facility] 03/26/2025 10:44:24 Pneumococcal conjugate PCV20, polysaccharide [id number] conjugate, adjuvant, PF 025 completed Not Available [facility] 03/26/2025 10:44:24 Influenza, split virus, quadrivalent, preservative 023 cancelled patient objection Trina Perez, SE[employer] [address] [facility], [place], [address], [place] [facility] 08/22/2023 21:30:04 Influenza, split virus, quadrivalent, preservative 019 completed Not Available [facility] 11/12/2023 14:27:58 Influenza, split virus, quadrivalent, preservative 020 completed Not Available [facility] 11/12/2023 14:27:58 COVID-19, mRNA, LNP-S, PF, 30 mcg/0.3 mL dose 021 completed Delores Conroy null, [place] - [facility] 10/31/2022 11:15:13 COVID-19, mRNA, LNP-S, PF, 30 mcg/0.3 mL dose 021 completed Delores Conroy null, [place] - [facility] 10/31/2022 11:15:13 Tdap 013 completed Delores Conroy null, [place] - [facility] 10/31/2022 11:15:13 Past Encounters Encounter ID Performer Location Encounter Start Date Encounter Closed Date Diagnosis/Indication Diagnosis SNOMED-CT Code Diagnosis ICD10 Code Diagnosis Note [id number] JI Lozano [facility] [address] [place] [address] 02/26/2025 08:14:29 02/26/2025 08:39:50 Degeneration of lumbar intervertebral disc 53616965 M51.369 Chronic-st ableEKASPE R 02/26/25 (appropria te)Date of lastUDS: 11/25/24CS A: 04/21/24Re fill: 02/03/25Ti me med was taken: 02/25/25 [id number] JI Lozano [facility] [address] [place] [facility] [place] [address] 03/13/2025 11:29:01 03/13/2025 11:59:05 Peripheral neuropathic pain 198677812 M79.2 chronic Type 2 bianka betes mellitus 87658554 E11.9 Patient reports taking metformin 500 mg daily for diabetesA1 C today is 6.2Neurolo gy recommende d starting GLP1/2 for weight loss Health Concerns Section Related Observation LastModified by Organization Detai ls LastModified Time None Recorded Concern Status LastModified by Organization Details LastModified Time None Recorded Payers Encounter Date Sequence Insurance Name Policy Number Policy [place]ob[place] Covered Member ID Escob[place] Member ID Guarantor Name 03/13/2025 1 [employer] (MEDICARE REPLACEMENT/ ADVANTAGE - PPO) Tesha Espinal [id number] Tesha Espinal Notes Date Note Type Note Provider Name and Address Organization Details Recorded Time 03/13/2025 text/html Patient Tesha Espinal, presents today to follow-up after seeing neurology to discuss medication to start. Complaints of reoccurring left ear fullness. Cara Smith APRN [address], [place], [address], [place] - [facility] 03/13/2025 12:37:20 OBGyn Episode No OBEpisode recorded.
== END ==
LOC: SL 07:16
PROVIDERS: PCP Specialist; Visit Provider Specialist
DX: R53.83 Other fatigue (principal); G47.33 Obstructive sleep apnea (adult) (pediatric); G47.36 Sleep related hypoventilation in conditions classified elsewhere
CPT/HCPCS: G0399